=== PATIENT | male | born 1965 | race Caucasian/White ===

== ENCOUNTER 2018-03-26 16:35 | Inpatient (IN) ==
--- NOTE | 2018-03-26 17:13 | Emergency Department Note ---
Disposition Clinical Impression: Left-sided weakness, Left sided numbness, Hypertension, uncontrolled Disposition: Admitted As Inpatient Condition: Good Time of Disposition: 18:41 Neuro HPI - General Chief Complaint: ED Neuro Symptoms/Deficit Stated Complaint: L side numbness Time Seen by Provider: 03/26/18 16:49 Source: patient Mode of arrival: ambulatory Limitations: no limitations Nursing Notes Reviewed: Yes Vital Signs Reviewed: Yes - History of Present Illness HPI Narrative: 53-year-old male history of hypertension diabetes presents an emergency department with left side weakness and numbness. Symptoms have been ongoing for almost 48 hours. States he was sitting on the couch when he felt his left side numb and a gradually developed into some weakness. Patient was able to ambulate here in the emergency department without difficulty. States this feels heavy. No prior history of stroke. His glucose was 161. His blood pressure was elevated but he has been having issues controlling it recently. His primary care physician recently increases lisinopril last week. He denies any chest pain or shortness of breath. No prior history of stroke or CVA. No history of blood clots. Denies any complaints such as headache, chest pain, shortness of breath or abdominal pain. No recent illness or fevers. No recent travel, tick bites or rashes. No prior injury or trauma. - Related Data Home Medications: Home Medications Medication Instructions Recorded Confirmed Albuterol Sulfate [Ventolin Hfa] 2 puff IH Q4H PRN 03/26/18 03/26/18 Lisinopril-HCTZ 20-12.5 [Prinzide 1 tab PO DAILY 03/26/18 03/26/18 20-12.5] Omeprazole [PriLOSEC] 40 mg PO DAILY 03/26/18 03/26/18 cloNIDine HCl [CloNIDine HCl] 0.1 mg PO TID 03/26/18 03/26/18 Allergies/Adverse Reactions: Allergies Allergy/AdvReac Type Severity Reaction Status Date / Time No Known Allergies Allergy Verified 03/26/18 18:47 All systems ED: reviewed and negative except as stated. Review of Systems: As Per HPI Constitutional: Reports: weakness. Denies: fever, chills Eyes: Denies: vision change Cardiovascular: Denies: chest pain, palpitations Respiratory: Denies: dyspnea Gastrointestinal: Denies: abdominal pain Musculoskeletal: Denies: back pain, neck pain Neurological: Reports: weakness, numbness. Denies: headache, vertigo Past Medical History - Past Medical History Attestation: Yes The following information was validated with the patient. Source: patient Medical history: Reports: GERD, hypertension, migraine Psychiatric history: Reports: no psych history - Social History Smoking Status: Current every day smoker Smokeless Tobacco Status: No Alcohol use: Reports: none Drug use: Reports: marijuana Physical Exam - General General appearance: alert, in no apparent distress - Head Head exam: atraumatic, normocephalic, normal inspection - Eye Eye exam: Present: normal appearance, PERRL, EOMI. Absent: nystagmus - ENT ENT exam: normal exam, normal oropharynx, mucous membranes moist - Neck Neck exam: Present: normal inspection, full ROM, trachea midline - Chest Chest inspection: Present: normal inspection, symmetric chest wall rise - Respiratory Respiratory exam: Present: normal lung sounds bilaterally. Absent: respiratory distress, wheezes - Cardiovascular Cardiovascular exam: Present: regular rate, normal rhythm, normal heart sounds - Expanded Cardiovascular Exam Peripheral pulses: 2+: radial (R), radial (L) - Abdominal Exam Abdominal exam: Present: soft, Non-Tender, normal bowel sounds. Absent: tenderness, distention, guarding, rebound, rigidity - Extremities Exam Extremities exam: Present: normal inspection, full ROM, normal capillary refill. Absent: tenderness, pedal edema - Back Exam Back exam: Present: normal inspection, full ROM. Absent: tenderness, vertebral tenderness - Neurological Exam Neurological exam: Present: alert, oriented X3, CN II-XII intact - Expanded Neurological Exam Patient oriented to: Present: person, place, time Cranial nerves: EOM function (II, III, IV, ): Normal, facial sensation (V): Normal, facial palsy (VII): Normal, gag reflex (IX): Normal, spinal accessory function (XI): Normal, tongue deviation (XII): Normal Cerebellar function: finger to nose: Normal, heel to wright: Normal Cerebellar function: normal gait Motor strength - LUE: 5/5 Motor strength - RUE: 5/5 Motor strength - LLE: 5/5 Motor strength - RLE: 5/5 Upper motor neuron exam: cristobal neglect: Absent bilaterally, pronator drift: Present on left Sensory exam upper extremity: light touch: Normal Sensory exam lower extremity: light touch: Normal Coma Scale Eye Opening: Spontaneous Coma Scale Motor Response: Obeys Commands Coma Scale Verbal Response: Oriented Coma Scale Total: 15 - Psychiatric Psychiatric exam: Present: normal affect, normal mood - Skin Skin exam: Present: warm, dry, intact, normal color. Absent: rash, cyanosis, diaphoresis Course Course Narrative: Patient was immediately evaluated here in the emergency department. His initial NIH score is 2 due to his sensory deficit on the left side and a slight left arm pronator drift. Stroke alert was not initiated given the time of onset greater than 4 hours. His exam is otherwise unremarkable. Given some of his risk factors will evaluate for possible CVA. Denies any G.I. bleed symptoms. A manual blood pressure 142/96. - Reevaluation(s) Reevaluation #1: His glucose has improved. His labs or otherwise unremarkable. Troponin lesson 0.03. His CT of the head did not reveal any acute infarct he does have a old chronic lacunar infarct that he is aware of. At this time given his risk factors including tobacco abuse and elevated blood pressure he will be admitted and given aspirin for further evaluation for possible new or worsening stroke. He is in agreement with this plan. He is requesting the smoke I discussed tobacco cessation. He would like to try nicotine patch at this time. Impression is left sided numbness weakness and tobacco abuse and hypertension without evidence of end organ damage. Time: 18:40 - Consultations Consultation #1: Spoke with on-call hospitalist alexi Stone to admit for left numbness/weakness , HTN and CVA workup. No further orders at this time Time: 19:18 Vital Signs Temperature 98.1 F 03/26/18 16:38 Pulse Rate 89 03/26/18 16:38 Respiratory Rate 16 03/26/18 16:38 Blood Pressure 191/135 03/26/18 16:38 O2 Sat by Pulse Oximetry 97 03/26/18 16:38 Temperature 98.1 F 03/26/18 16:38 Pulse Rate 93 03/26/18 18:45 Respiratory Rate 18 03/26/18 17:00 Blood Pressure 139/123 03/26/18 18:45 O2 Sat by Pulse Oximetry 96 03/26/18 17:10 Oxygen Delivery Oxygen Delivery Room Air Neuro Symptoms/Deficit - MDM Narrative Medical decision making narrative: Patient was discussed with my attending physician who agrees with ED management and final disposition. They independently evaluated the patient. Please refer to their attestation to this encounter for additional information. This note was generated by [employer] voice recognition software and as a result grammatical or spelling errors may occur using this program. - Medical Records Medical records reviewed: Yes I reviewed the patient's medical records. - Lab Data Lab results reviewed: Yes I reviewed the patient's lab results. Result diagrams: 03/26/18 17:05 03/26/18 17:05 Lab Results 03/26/18 03/26/18 03/26/18 Range/Units 17:05 17:05 17:05 WBC 9.6 (4.3-11.1) K/mcL RBC 5.20 (4.19-5.50) M/mcL Hgb 15.8 (12.9-16.9) g/dL Hct 45.1 (37.5-50.1) % MCV 86.7 (83.0-100.0) fL MCH 30.4 (28.0-33.3) pg MCHC 35.0 (31.6-35.5) g/dL RDW 13.6 (11.5-14.5) % Plt Count 329 (140-400) K/mcL MPV 9.3 L (9.4-12.4) fL Immature Gran % 0.3 (0-4) % Seg Neutrophils % 65.4 % Lymphocytes % 26.0 % Monocytes % 5.7 % Eosinophils % 2.2 % Basophils % 0.4 % Neutrophils # 6.3 (1.6-8.9) K/mcL Lymphocytes # 2.5 (0.6-4.6) K/mcL Monocytes # 0.6 (0.0-1.3) K/mcL Eosinophils # 0.2 (0.0-0.6) K/mcL Basophils # 0.0 (0.0-0.2) K/mcL PT 12.7 H (9.4-12.1) Seconds INR 1.1 APTT 37.0 H (26.0-36.0) Seconds Sodium 136 (136-145) mEq/L Potassium 3.6 (3.5-5.1) mEq/L Chloride 101 (98-107) mEq/L Carbon Dioxide 27 (23-29) mEq/L BUN 6 (6-20) mg/dL Creatinine 0.99 (0.70-1.30) mg/dL Est GFR ( Amer) > 60 (> 60) Est GFR (Non-Af Amer) > 60 (> 60) BUN/Creatinine Ratio 6 (6-26) Glucose 139 H (70-105) mg/dL Calculated Osmolality 282 (280-300) Calcium 9.6 (8.6-10.3) mg/dL Troponin I < 0.03 (< 0.04) ng/mL - Radiology Data Radiology results reviewed: Yes I reviewed the patient's radiology results. Head CT 03/26/18 17:10 IMPRESSION: No acute intracranial abnormality. D/ / Richard Lopez MD / Richard Lopez MD Interpreting Provider: Richard Lopez MD - EKG Data EKG attestation: Yes I reviewed and interpreted this EKG. EKG results narrative: EKG performed 1643 normal sinus rhythm 88 beats per minute, normal axis, no LVH , intervals within normal limits, no ST elevation or depression. No old EKG available for comparison at this time. No acute ischemic changes. NIH Stroke Scale - Level of Consciousness LOC: Alert - LOC Questions LOC Questions: Answers both correctly - LOC Commands LOC Commands: Performs both correctly - Best Gaze Best Gaze: Normal - Visual Visual: No visual loss - Facial Palsy Facial Palsy: Normal - Motor Arms Motor Arm-Left: Drift, does NOT hit bed Motor Arm-Right: No drift for 10 seconds - Motor Legs Motor Leg-Left: No drift for 5 seconds Motor Leg-Right: No drift for 5 seconds - Limb Ataxia Limb Ataxia: Absent of affected limb too weak to perform exam - Sensory Sensory: Mild to moderate loss, "not as sharp" - Best Language Best Language: No aphasia - Dysarthria Dysarthria: Normal - Extinction and Inattention Extinction and Inattention: Normal - NIHSS Total Score NIHSS Total Score: 2 TPA Checklist - Eligibilty for IV tPA 1. LKW equal to or less than 4.5 hours be before treatment: No Attestation Statement - Attestation Attestation: I examined this patient and my medical decision-making was reviewed with the Resident Physician, Dr. Patrick. I agree with the documented findings, disposition and treatment plan as described except to the extent set forth below. Patient is a 53-year-old white male smoker with a history of uncontrolled blood pressure and diabetes who presents the emergency department today with a 48 hour history of left-sided weakness and numbness. Patient denies any associated headaches, no dizziness or vertigo, no history of falls or trauma. Patient with clear speech and GCS equals 15 awake alert and oriented 4. Patient states that the symptoms have been constant but not progressing, and he recently had his blood pressure medicine increased by his family doctor. I agree with patient's physical exam findings as documented. Patient's blood pressure is elevated at time of initial assessment. EKG was normal sinus rhythm with no acute ischemia or evidence of LVH. Patient had a thorough workup including laboratory evaluation chest x-ray and head CT. Patient with stable neurologic findings throughout his ED course with no worsening symptoms over time. Noncontrast head CT did show evidence of an old lacunar changes but no acute findings today. Patient's lab evaluation is unremarkable overall. Rechecking blood pressure with manual cuff with patient in appropriate positioning showed blood pressures in the 140s over 90s. No medications were administered for his blood pressure. Patient was administered aspirin and will be admitted for further evaluation of elevated blood pressure and left-sided weakness and numbness. Case was discussed with hospitalist who accepted the patient for further evaluation and management.
[2018-03-26 17:31] LABS: Basophils % 0.4 %; Eosinophils # 0.2 K/mcL (0.0-0.6); Eosinophils % 2.2 %; Hematocrit 45.1 % (37.5-50.1); Hemoglobin 15.8 g/dL (12.9-16.9); Immature Granulocytes % 0.3 % (0-4); Lymphocytes # 2.5 K/mcL (0.6-4.6); Mean Corpuscular Hemoglobin 30.4 pg (28.0-33.3); Mean Corpuscular Volume 86.7 fL (83.0-100.0); Mean Platelet Volume 9.3 fL (9.4-12.4); Monocytes # 0.6 K/mcL (0.0-1.3); Monocytes % 5.7 %; Neutrophils # 6.3 K/mcL (1.6-8.9); Platelet Count 329 K/mcL (140-400); Red Cell Distribution Width 13.6 % (11.5-14.5); Segmented Neutrophils % 65.4 %
[2018-03-26 17:36] LABS: INR 1.1; Prothrombin Time 12.7 Seconds (9.4-12.1)
[2018-03-26 17:53] LABS: Troponin I < 0.03 ng/mL (< 0.04)
[2018-03-26 17:54] LABS: BUN/Creatinine Ratio 6 (6-26); Blood Urea Nitrogen 6 mg/dL (6-20); Calcium 9.6 mg/dL (8.6-10.3); Carbon Dioxide 27 mEq/L (23-29); Chloride 101 mEq/L (98-107); Glucose 139 mg/dL (70-105); Osmolality,Calculated 282 (280-300); Potassium 3.6 mEq/L (3.5-5.1); Sodium 136 mEq/L (136-145); eGFR For Non-African Americans > 60 (> 60)
[2018-03-26] MEDS ORDERED: Aspirin 81 MG TAB.CHEW PO STA (18:28)
[2018-03-26] MEDS ORDERED: Nicotine 21 MG PATCH.TD24 TD STA (18:33)
--- NOTE | 2018-03-26 20:33 | Internal Med History&Physical ---
<Connor Edwards - Last Filed: 03/26/18 22:39> Date of Encounter: 03/26/18 Time of Encounter: 20:28 Internal Medicine - H&P: HPI Chief complaint: weakness, numbness Admitted From: Emergency Dept Plans for Post Hospital Care: Home History of present illness: Mr. Martin is a 53 year old male with past medical history of hypertension, GERD presents to emergency room with complaint of left-sided weakness and numbness starting this morning. Patient states that he was sitting on the couch when he experienced sudden onset of symptoms. Numbness is located on the entire left side of his body and has been constant ever since onset. He has never experienced anything like this in the past. He states occasionally he does feel some tingling in bilateral upper extremities but never numbness like this. He denies symptoms of fevers, chills, slurred speech, focal weakness, chest pain. He does admit to some shortness of breath at baseline but states this is likely secondary to tobacco abuse. He states that he is not always compliant and his antihypertensive medicines but did take it this morning. He denies urinary symptoms but does admit to chronic constipation. He admits to an altered gait and his was present at bedside also states that he has been walking slower than usual. Denies any confusion or changes in his mental status. Complains of a headache and states that for one episode this morning there was some intermittent dizziness. No associated nausea or vomiting. No sick contacts, no recent travel. The emergency department, vital signs remarkable for an elevated blood pressure of 191/135 which has mildly improved to 139/123. Laboratory results are significant for mildly elevated APTT at 37 and PT of 12.7. Otherwise within normal limits. CT head was obtained for concerns of ischemic event and was negative for acute infarct. He did have a previous brain MRI in March 2017 which showed encephalomalacia in the right anterior temporal region with surrounding gliosis. Remote insult is also noted adjacent to the frontal portion of the right lateral ventricle involving the caudate lobe. There is extension to the anterior limb of the internal capsule into the right anterior lentiform nucleus region. Associated gliosis and hemosiderin as noted. Past medical history as above. Documentation states diabetes however patient denies Past surgical history includes hernia repair and face laceration Social history significant for 2 pack per day smoker since teenage years, denies alcohol use. Daily marijuana use and remote history of LSD. Past Med Surg Social Fam HX - Past Medical History Medical history: GERD, hypertension, migraine Psychiatric history: no psych history - Social History Smoking Status: Current every day smoker Smokeless Tobacco Status: No Alcohol use: none Drug use: marijuana - Family History Mother Living Status: Cause of : aneurysm Father Living Status: Cause of : COPD Hx Family Respiratory Disorders: Yes (COPD) Internal Medicine - H&P: Meds Albuterol Sulfate [Ventolin Hfa] 2 puff IH Q4H PRN 03/26/18 [History] Lisinopril-HCTZ 20-12.5 [Prinzide 20-12.5] 1 tab PO DAILY 03/26/18 [History] Omeprazole [PriLOSEC] 40 mg PO DAILY 03/26/18 [History] cloNIDine HCl [CloNIDine HCl] 0.1 mg PO TID 03/26/18 [History] 3 Allergy/AdvReac Type Severity Reaction Status Date / Time No Known Allergies Allergy Verified 03/26/18 18:47 All Systems PM: A 10-system review of systems was performed and is negative for pertinent findings except as documented above in the HPI. - Constitutional Constitutional: weakness, weight loss, no chills, no fatigue, no fever(s), no lethargy - EENT Eyes: floaters, no blurry vision - Cardiovascular Cardiovascular ROS IM: dyspnea on exertion, no chest pain, no diaphoresis, no dyspnea, no edema, no lightheadedness, no syncope - Respiratory Respiratory: dyspnea on exertion, no cough, no dyspnea, no wheezing - Gastrointestinal Gastrointestinal: constipation, no abdominal pain, no coffee ground emesis, no diarrhea, no dysphagia, no hematemesis, no hematochezia, no loose stools, no melena, no vomiting - Genitourinary Genitourinary ROS male: no dysuria - Musculoskeletal Musculoskeletal ROS IM: back pain, muscle weakness, numbness, no tingling - Integumentary Integumentary IM: no rash - Neurological Neurological ROS: abnormal gait, dizziness, focal weakness, numbness, weakness, no abnormal hearing, no abnormal speech, no behavioral changes, no confusion, no disequilibrium, no tingling, no other visual disturbances - Constitutional Vitals: Temp Pulse Resp BP Pulse Ox 98.1 F 93 18 146/92 96 03/26/18 16:38 03/26/18 18:45 03/26/18 17:00 03/26/18 19:57 03/26/18 17:10 Exam: Gen.: Vitals noted. No acute distress. AAOx3. Resting comfortably in bed HEENT: PERRL/EOMI, oropharynx clear, Normocephalic, atraumatic, moist mucous membranes Cardiac: RRR, no murmur, +S1/S2 Pulmonary: Mild wheezes in right lung base otherwise CTA bilaterally, no wheezes , rales or rhonchi, equal chest expansion Abdomen: soft, nontender, BS noted, no guarding MSK: ROM intact, no joint swelling noted Extremities: no BLE edema, nontender calf, no cyanosis or clubbing Neuro: A&Ox3, moves all extremities, no focal deficits. Cranial nerves II through XII grossly intact. Patient reports many sensation on left side with inability to distinguish sharp first dull touch. He also complains of weakness however on exam he is able to achieve 5/5 muscle strength however left side does notably take longer to achieve full strength. Psych: Appropriate mood and behavior Internal Med - H&P Results - Labs CBC & Chem 7: 03/26/18 17:05 03/26/18 17:05 - Assessment and plan (1) Left sided numbness Current Visit: Yes Status: Acute Assessment and plan: - Sudden onset numbness and weakness in left side of body x1 day - CT head in ED was negative for ischemic event - Risk factors include tobacco use, DM?, HTN - Numbness, inability to discriminate sensation, mild weakness on exam - BP elevated on presentation, will allow for permission HTN Plan - Start ASA, atorvastatin - MRI head pending - Echocardiogram, carotid US pending - Pt/OT - Consult to neurology, appreciate recommendation Update: MRI shows acute ischemic small 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 Left basal ganglia hemorrhage and left cerebral micro hemorrhages new from 2017, non acute. 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 lobe unchanged from previous (2) Left-sided weakness Current Visit: Yes Status: Acute Assessment and plan: as above (3) Hypertension, uncontrolled Current Visit: Yes Status: Chronic Assessment and plan: - BP of 191/135 on presentation, mildly improved to 139/123 during ED stay - Takes clonidine at home After finding acute CVA on MRI as above, will hold BP meds and allow for permissive HTN Goal BP 160-170/90-100 (4) Diabetes type 2, controlled Current Visit: Yes Status: Chronic Assessment and plan: - Patient denies type II DM2, however it is documented in chart - No recent A1c in chart - Will obtain a1c in AM and start hypoglyemic order but will not start insulin therapy - BS in ED of 137 Qualifiers: Diabetes mellitus custodial insulin use: without custodial use Diabetes mellitus complication status: without complication Qualified Code(s): E11.9 - Type 2 diabetes mellitus without complications (5) DVT prophylaxis Current Visit: Yes Status: Acute Assessment and plan: - Heparin held due to MRI showing acute stroke aspirin (6) Tobacco abuse Current Visit: Yes Status: Acute Assessment and plan: - discussed smoking cessation, patient acknowledges risk of continuing to smoke. He is not interested in cessation at this time. Will give nicotine patch Wheezing on exam, will give albuterol PRN - Time Spent With Patient Total time spent is greater than 50% in coordination of care (as documented) at patient's floor/unit and/or counseling patient: <Ivan Calles - Last Filed: 03/27/18 14:28> Date of Encounter: 03/27/18 Internal Medicine - H&P: HPI History of present illness: Mr. Martin is a 53 year old male All Systems PM: A 10-system review of systems was performed and is negative for pertinent findings except as documented above in the HPI. - Constitutional Vitals: Temp Pulse Resp BP Pulse Ox 97.5 F L 86 16 167/27 97 03/27/18 10:59 03/27/18 10:59 03/27/18 10:59 03/27/18 10:59 03/27/18 10:59 Internal Med - H&P Results - Labs CBC & Chem 7: 03/27/18 04:17 03/27/18 04:17 Labs: Short CBC 03/27/18 Range/Units 04:17 WBC 8.8 (4.3-11.1) K/mcL Hgb 15.7 (12.9-16.9) g/dL Hct 45.4 (37.5-50.1) % Plt Count 330 (140-400) K/mcL Neutrophils # 4.2 (1.6-8.9) K/mcL BMP 08/03/18 04:17 Sodium 137 Potassium 3.8 Chloride 102 Carbon Dioxide 27 BUN 7 Creatinine 0.85 Glucose 125 H Calcium 9.7 - Attending Attestation Seen and assessed. Agree with plan per resident. Continue management for acute medullary stroke - Assessment and plan (1) Left-sided weakness Current Visit: Yes Status: Acute (2) Left sided numbness Current Visit: Yes Status: Acute (3) Hypertension, uncontrolled Current Visit: Yes Status: Chronic (4) DVT prophylaxis Current Visit: Yes Status: Acute (5) Diabetes type 2, controlled Current Visit: Yes Status: Chronic Qualifiers: Diabetes mellitus custodial insulin use: without intermediate project manager use Diabetes mellitus complication status: without complication Qualified Code(s): E11.9 - Type 2 diabetes mellitus without complications (6) Tobacco abuse Current Visit: Yes Status: Acute - Time Spent With Patient Total time spent is greater than 50% in coordination of care (as documented) at patient's floor/unit and/or counseling patient:
[2018-03-26] MEDS ORDERED: traMADol 50 MG TABLET PO PRN (20:40)
[2018-03-26] MEDS ORDERED: Naloxone 0.4 MG/ML INJ IVP PRN (20:40)
[2018-03-26] MEDS ORDERED: Acetaminophen 325 MG TABLET PO PRN (20:40)
[2018-03-26] MEDS: cloNIDine HCl 0.1 MG TABLET PO SCH (22:17)
--- NOTE | 2018-03-26 22:22 | Event Note ---
Date of Encounter: 03/26/18 Time of Encounter: 22:14 Alerted by patient's nurse CHRISTOPHER Dutton that MRI results came back stating small acute medullary infarct and left basal ganglia hemorrhage and left cerebral microhemorrhages new from 2017, nonacute. Small focus of encephalomalacia/gliosis involving anterior right temporal lobe, possibly post- traumatic, unchanged. Pts. HTN medications held to allow for permissive HTN. Neurology consulted. Pt. to be monitored closely.
[2018-03-27 04:46] LABS: Basophils # 0.1 K/mcL (0.0-0.2); Basophils % 0.6 %; Eosinophils # 0.4 K/mcL (0.0-0.6); Eosinophils % 4.1 %; Hematocrit 45.4 % (37.5-50.1); Hemoglobin 15.7 g/dL (12.9-16.9); Immature Granulocytes % 0.3 % (0-4); Lymphocytes # 3.5 K/mcL (0.6-4.6); Lymphocytes % 39.8 %; Mean Corpuscular HGB Conc 34.6 g/dL (31.6-35.5); Mean Corpuscular Volume 86.8 fL (83.0-100.0); Mean Platelet Volume 9.4 fL (9.4-12.4); Monocytes # 0.7 K/mcL (0.0-1.3); Monocytes % 7.5 %; Neutrophils # 4.2 K/mcL (1.6-8.9); Platelet Count 330 K/mcL (140-400); Red Blood Count 5.23 M/mcL (4.19-5.50); Red Cell Distribution Width 13.7 % (11.5-14.5); Segmented Neutrophils % 47.7 %
[2018-03-27 04:56] LABS: BUN/Creatinine Ratio 8 (6-26); Blood Urea Nitrogen 7 mg/dL (6-20); Calcium 9.7 mg/dL (8.6-10.3); Carbon Dioxide 27 mEq/L (23-29); Chloride 102 mEq/L (98-107); Chol/HDL Ratio 7.8 (0-4.9); Cholesterol 218 mg/dL (< 200); Glucose 125 mg/dL (70-105); HDL Cholesterol 28 mg/dL (40-59); LDL Cholesterol,Calculated 153 mg/dL (0-99); Osmolality,Calculated 283 (280-300); Potassium 3.8 mEq/L (3.5-5.1); Sodium 137 mEq/L (136-145); Triglycerides 184 mg/dL (< 150); eGFR For Non-African Americans > 60 (> 60)
[2018-03-27] MEDS ORDERED: *HR* Heparin 5,000 UNIT/ML VIAL SQ SCH (06:00)
[2018-03-27] MEDS: Nicotine 21 MG PATCH.TD24 TD SCH (08:41)
[2018-03-27] MEDS: Lisinopril-HCTZ 20-12.5mg TABLET PO SCH (08:42)
[2018-03-27] MEDS: Aspirin 81 MG TAB.CHEW PO SCH (08:42)
[2018-03-27] MEDS: cloNIDine HCl 0.1 MG TABLET PO SCH ×3 (08:42→21:39)
--- NOTE | 2018-03-27 09:05 | Neurology - Consult Note ---
<Checo Rosenthal - Last Filed: 03/27/18 14:12> Date of Encounter: 03/27/18 Time of Encounter: 08:35 Assessment and Plan (1) Acute brainstem infarction Current Visit: Yes Status: Acute MRI brain showed a small acute anterior medullary infarct. Continue 81mg ASA and statin Will add 75mg clopidogrel as hemorrhage on MRI was said to be non acute Agree with holding BP meds to allow for permissive HTN till tomorrow and then restart as needed Carotid doppler and ECHO ordered PT/OT ordered Code(s): I63.8 - Other cerebral infarction SNOMED Code(s): 80422086 History of Present Illness Chief complaint: L sided numbness HPI: Mr. Martin is a 53 year old male with a PMH significant for HTN, 2ppd tobacco use, and migraines that neurology was consulted for L sided numbness. He states he was watching TV yesterday ~1100 while sitting on the couch and all of a sudden got entire L sided numbness "from top of head to toes." This was followed by L arm weakness, slurred speech, headache, and was off balance towards his L side while walking. His symptoms were not resolving and not progressing when he decided to go to the ED last night. Today, he says the numbness and weakness is minimally better, slurred speech has resolved but has been dizzy with nausea but has not vomited. He denies any diplopia, blurry vision, loss of peripheral vision, dysphagia, chest pain, palpitations, R sided numbness/weakness, or urinary incontinence. Past Med Surg Social Fam HX - Past Medical History Medical history: GERD, hypertension, migraine Additional medical history: chronic back pain Psychiatric history: no psych history - Social History Smoking Status: Current every day smoker Packs per day: 2 Smokeless Tobacco Status: No Alcohol use: none Drug use: marijuana - Family History Mother Living Status: Cause of : aneurysm Father Living Status: Cause of : COPD Hx Family Respiratory Disorders: Yes (COPD) Medications and Allergies Albuterol Sulfate [Ventolin Hfa] 2 puff IH Q4H PRN 03/26/18 [History] Lisinopril-HCTZ 20-12.5 [Prinzide 20-12.5] 1 tab PO DAILY 03/26/18 [History] Omeprazole [PriLOSEC] 40 mg PO DAILY 03/26/18 [History] cloNIDine HCl [CloNIDine HCl] 0.1 mg PO TID 03/26/18 [History] 3 Allergy/AdvReac Type Severity Reaction Status Date / Time No Known Allergies Allergy Verified 03/26/18 18:47 All Systems: The remainder of the systems were reviewed and are negative Physical Examination - Vital Signs Vital Signs: Initial Vital Signs Temp Pulse Resp BP Pulse Ox 98.1 F 89 16 191/135 97 03/26/18 16:38 03/26/18 16:38 03/26/18 16:38 03/26/18 16:38 03/26/18 16:38 - Constitutional General appearance: comfortable - Neurologic Sensorimotor examination: pronator drift (L sided drift) Motor examination - right side: 5/5: deltoids, biceps, triceps, wrist flexion, wrist extension, multigrapher, hip flexors, tibialis Anterior, quadriceps, toe extension (EHL), plantarflexion Motor examination - left side: 4/5: deltoids, biceps, triceps, wrist flexion, wrist extension, hip flexors, multigrapher, quadriceps, tibialis Anterior, toe extension (EHL), plantarflexion Detailed sensory examination: light touch (intact bilaterally ), temperature ( Decreased slightly on L upper/lower limb when compared to R side ), vibration ( intact bilaterally ) Reflexes: Biceps: 2+, Triceps: 2+, Brachioradialis: 2+, Patella: 2+, Achilles: 2 + Mental Status Examination: awake, alert, oriented to person, oriented to place, oriented to time, follows commands appropriately, answers questions appropriately, no aphasia Cranial nerve examination: PERRL, EOMI, visual hernandez intact, sensory to face intact, no facial asymmetry is present, no dysarthria, soft palate elevates bilaterally upon phonation, flexes SCM and trapezius muscles symmetrically with full power Cranial Nerve Exam: nystagmus: Left (L sided nystagmus ), tongue protrudes: Right (slightly to the right of midline with R/L movement of tongue intact) Ataxia: left upper extremity Results - Laboratory Findings CBC and BMP: 03/27/18 04:17 03/27/18 04:17 Abnormal lab findings: Abnormal lab results PT 12.7 Seconds (9.4-12.1) H 03/26/18 17:05 APTT 37.0 Seconds (26.0-36.0) H 03/26/18 17:05 Glucose 125 mg/dL (70-105) H 03/27/18 04:17 POC Glucose 161 mg/dL (70-99) H 03/26/18 16:39 Triglycerides 184 mg/dL (< 150) H 03/27/18 04:17 Cholesterol 218 mg/dL (< 200) H 03/27/18 04:17 LDL Cholesterol, Calc 153 mg/dL (0-99) H 03/27/18 04:17 VLDL Cholesterol, Calc 37 mg/dL (< 31) H 03/27/18 04:17 HDL Cholesterol 28 mg/dL (40-59) L 03/27/18 04:17 Cholesterol/HDL Ratio 7.8 (0-4.9) H 03/27/18 04:17 Consult Discharge Plan - Plan Referrals: Danny Sherman Jr, DISTRIBUTOR OPERATOR [Advanced Practice Nurse] - 03/30/18 2:30 pm NONE,PCP [Primary Care Provider] - <Gonzalez Gibbs - Last Filed: 03/27/18 16:34> Date of Encounter: 03/27/18 Time of Encounter: 16:29 Assessment and Plan (1) Acute brainstem infarction Current Visit: Yes Status: Acute As above. This patient has unfortunately experienced an acute brainstem infarct. Specifically the infarct is located in the anterior medulla. Unfortunately after multiple tends to educate this patient he has little interest in modifying his current lifestyle. He understands that strokes can be lethal this was stated to him several times. I am also concerned about his ability to care for himself as he goes home. He is adamant that he will be able to care for himself and his live-in girlfriend who quite possibly may have disabilities of her home. However from a medical perspective I would recommend smoking cessation, would recommend that he continue aspirin 81 mg daily along with staff. I would recommend normalizing his blood pressure over the next day or so. Carotid Doppler study at this time is pending. However, more than likely this is a small vessel event which occurred in the posterior circulation. I will reevaluate him at your request. I would also recommend a trial of outpatient PT and OT. History of Present Illness HPI: The chart was reviewed, the patient was seen and examined independently.Mr. Martin is a 53 year old male seen for neurologic evaluation secondary to sudden onset left-sided numbness paresthesia and weakness. Case was discussed with Dr. Rosenthal. I agree with his assessment as stated above. Upon admission patient's blood pressure was greater than 200 systolic. He is also a 2 pack per day smoker. All Systems: The remainder of the systems were reviewed and are negative Review of Systems: The balance of the systems review is negative. Physical Examination - Vital Signs Vital Signs: Initial Vital Signs Temp Pulse Resp BP Pulse Ox 98.1 F 89 16 191/135 97 03/26/18 16:38 03/26/18 16:38 03/26/18 16:38 03/26/18 16:38 03/26/18 16:38 Results - Laboratory Findings CBC and BMP: 03/27/18 04:17 03/27/18 04:17 Abnormal lab findings: Abnormal lab results PT 12.7 Seconds (9.4-12.1) H 03/26/18 17:05 APTT 37.0 Seconds (26.0-36.0) H 03/26/18 17:05 Glucose 125 mg/dL (70-105) H 03/27/18 04:17 POC Glucose 161 mg/dL (70-99) H 03/26/18 16:39 Triglycerides 184 mg/dL (< 150) H 03/27/18 04:17 Cholesterol 218 mg/dL (< 200) H 03/27/18 04:17 LDL Cholesterol, Calc 153 mg/dL (0-99) H 03/27/18 04:17 VLDL Cholesterol, Calc 37 mg/dL (< 31) H 03/27/18 04:17 HDL Cholesterol 28 mg/dL (40-59) L 03/27/18 04:17 Cholesterol/HDL Ratio 7.8 (0-4.9) H 03/27/18 04:17
[2018-03-27] MEDS ORDERED: Ondansetron 4 MG/2 ML VIAL IVP PRN (11:02)
--- NOTE | 2018-03-27 15:43 | Internal Med Progress Note ---
Hospitalist Progress Note - Encounter Date of Encounter: 03/27/18 Time of Encounter: 11:35 - Subjective Interval History: Patient was seen and assessed at bedside 11:35 AM. He states he wants to go home. He states that he cares for his girlfriend at home. I requested they please wait for testing and neurology evaluation, he was agreeable. He states that he does smoke at least 2 packs of cigarettes per day. He reports smoking marijuana every single day. Patient has obvious deficit left upper extremity with obvious weakness. He denies any pain in the extremity and states that his entire left side from head to toe is still tingling. He denies nausea or vomiting, vision changes, headache or blurred vision. He denies chest pain or shortness of breath, cough, fever, chest pain, abdominal pain, nausea, vomiting , or diarrhea. - Exam Vitals: Temp Pulse Resp BP Pulse Ox 97.5 F L 86 16 167/27 97 03/27/18 10:59 03/27/18 10:59 03/27/18 10:59 03/27/18 10:59 03/27/18 10:59 Exam: General: Pt sitting on bed, no distress. Skin: pwd, no rashes, lesions, redness Neurological: Pt is alert and awake, oriented x 3, Speech is clear, PERRLA, EOMI , no nystagmus. strength unequal, obvious weakness in right upper and right lower extremities. HEENT: mucous mumbranes moist, no conjuctival pallor Neck: supple, no tracheal deviation, no lymphadenopathy, tenderness, no thyromegaly Heart: S1S2 heard without gallops, clicks, murmurs, no bradycardia or tachycardia, pt has no peripheral edema, pedal and radial pulses palpable bilaterally. Lungs: clear throughout without wheezing, rales, or ronchi, respirations are unlabored Abdomen: soft and non tender with bowel sound present, no hepatomegaly. Psych: Normal affect with good eye contact - Assessment and Plan (1) Left-sided weakness Current Visit: Yes Status: Acute Assessment and Plan: Obvious left-sided upper extremity and lower extremity weakness status post acute CVA. Grasp weak to left hand and pt has some limited ROM to hand and fingers. PT/OT has recommended inpt swing bed/rehab. SS consulted for discharge planning Continue to monitor for safety and falls. (2) Left sided numbness Current Visit: Yes Status: Acute Assessment and Plan: Plan as above. (3) Hypertension, uncontrolled Current Visit: Yes Status: Chronic Assessment and Plan: Chronic and poorly controlled. Hold BP meds until tomorrow and restart, allow for permissive HTN. Per neuro note: Goal BP 160-170/90-100mmHg (4) DVT prophylaxis Current Visit: Yes Status: Acute Assessment and Plan: Heparin SQ BID, pt is ambulatory and up to chair. (5) Diabetes type 2, controlled Current Visit: Yes Status: Chronic Assessment and Plan: Hbg A1c ordered and pending. Pt denies diabetes Fasting serum glucose elevated this a.m. Hypoglycemic protocol in place, will not start insulin therapy until A1c returned. Accuchecks miguel (6) Tobacco abuse Current Visit: Yes Status: Chronic Assessment and Plan: Pt states that he smokes at least 2 PPD. States that he is not interested in smoking cessation and does not want nicoderm patch for home. Wheezing on exam, will start scheduled duonebs. (7) CVA (cerebral vascular accident) Current Visit: Yes Status: Acute Assessment and Plan: MRI showed small acute anterior medullary infarct. Patient has not acute left basal ganglia hemorrhage and left cerebral microhemorrhages that are new from prior exam in 2017. Small focus of encephalomalacia/gliosis involving anterior right temporal lobe, possibly posttraumatic, unchanged. She has been evaluated by neurology, I recommend holding blood pressure medications until tomorrow allowing for permissive hypertension. Patient will continue aspirin and statin. Plavix 75 mg by mouth daily was added. PT/OT have recommended swing bed/rehab Echo and carotids are ordered and pending Continue retail sales professional for safety and falls Encourage lifestyle modifications including BP and glucose control, smoking cessation, medication compliance. (8) Marijuana abuse Current Visit: Yes Status: Chronic Assessment and Plan: Pt states that he smokes marijuana daily and states that he is "never going to stop." DVT Prophylaxis: Heparin as above. - Time Spent with Patient Total time spent is greater than 50% in coordination of care (as documented) at patient's floor/unit and/or counseling patient: less than 15 minutes Plan of Care Discussed with: patient Internal Medicine: Result - Labs CBC & Chem 7: 03/27/18 04:17 03/27/18 04:17 Labs: Short CBC 03/27/18 Range/Units 04:17 WBC 8.8 (4.3-11.1) K/mcL Hgb 15.7 (12.9-16.9) g/dL Hct 45.4 (37.5-50.1) % Plt Count 330 (140-400) K/mcL Neutrophils # 4.2 (1.6-8.9) K/mcL BMP 03/27/18 04:17 Sodium 137 Potassium 3.8 Chloride 102 Carbon Dioxide 27 BUN 7 Creatinine 0.85 Glucose 125 H Calcium 9.7 - ABG Interpretation ABG results: PT/INR, D-dimer PT 12.7 Seconds (9.4-12.1) H 03/26/18 17:05 - VTE Documentation of Mechanical Device: Intermittent pneumatic compression device Consult Discharge Plan - Plan Referrals: Danny Sherman Jr, SIXTH GRADE TEACHER [Advanced Practice Nurse] - 03/30/18 2:30 pm NONE,PCP [Primary Care Provider] - (5) Diabetes type 2, controlled Qualifiers: Diabetes mellitus senior living insulin use: without senior living use Diabetes mellitus complication status: without complication Qualified Code(s): E11.9 - Type 2 diabetes mellitus without complications (7) CVA (cerebral vascular accident) Qualifiers: CVA mechanism: unspecified Qualified Code(s): I63.9 - Cerebral infarction, unspecified
[2018-03-27] MEDS: Ipratropium/Albuterol Neb 3 ML IH SCH ×3 (16:38→23:42)
[2018-03-28] MEDS: Ipratropium/Albuterol Neb 3 ML IH SCH ×3 (04:05→11:09)
[2018-03-28 07:46] VITALS: BP 150/110
[2018-03-28] MEDS: Nicotine 21 MG PATCH.TD24 TD SCH (08:04)
[2018-03-28] MEDS: Aspirin 81 MG TAB.CHEW PO SCH (08:05)
[2018-03-28] MEDS: Lisinopril-HCTZ 20-12.5mg TABLET PO SCH (08:05)
[2018-03-28] MEDS: cloNIDine HCl 0.1 MG TABLET PO SCH (08:05)
--- NOTE | 2018-03-28 08:19 | Electrocardiograph Report ---
[place] [employer] Test Date: 2018-03-26 Pat Name: Walt Martin Department: 104 Room: 3B54 Gender: M [facility] House Supervisor: [facility] : 1965 Requested By: Todd Woodard Order Number: [id number] Reading MD: Yovani Conti Measurements Intervals [place] Rate: 88 P: 70 AL: 124 QRS: 62 QRSD: 90 T: 60 QT: 354 QTc: 399 Interpretive Statements SINUS RHYTHM NONSPECIFIC T-WAVE ABNORMALITY Electronically Signed On 03-28-2018 8:17:55 EDT by Yovani Conti
--- NOTE | 2018-03-28 08:49 | Discharge Summary ---
- NOTES TO OUTPATIENT PROVIDER Notes to Outpatient Provider: Pt had medullary infarct, he is still having numbness and tingling to left side of body. PT/OT recommend inpt rehab, pt declined and states that he wanted to go home. Recommend PT/OT outpatient. Date of Encounter: 03/28/18 Time of Encounter: 09:30 - Discharge Diagnosis (1) Left-sided weakness Priority: Secondary Status: Acute Assessment and Plan: Obvious left-sided upper extremity and lower extremity weakness status post acute CVA. Grasp weak to left hand and pt has some limited ROM to hand and fingers. Pt reports numbness and tingling, somewhat improved today PT/OT has recommended inpt swing bed/rehab, pt refuses and wants to go home instead. Discussed risks of opting out of PT/OT, he states that he doesn't care. (2) Left sided numbness Priority: Secondary Status: Acute Assessment and Plan: Plan as above. (3) Hypertension, uncontrolled Priority: Secondary Status: Chronic Assessment and Plan: Chronic and poorly controlled. BP meds have been restarted. Per neuro note: Goal BP 160-170/90-100mmHg. At goal this a.m. Pt and I discussed the importance of lifestyle modifications and compliance with medications and he states, "Why? I'm not going to and I'm just going to have another stroke." (4) DVT prophylaxis Priority: Secondary Status: Acute Assessment and Plan: Heparin SQ BID, pt is ambulatory and up to chair. (5) Diabetes type 2, controlled Priority: Secondary Status: Chronic Assessment and Plan: Pt denies diabetes. No A1c available. Fasting serum glucose elevated this a.m. Hypoglycemic protocol in place, will not start insulin therapy until A1c returned. Accuchecks achs Follow closely with PCP for evaluation and medications if necessary. Qualifiers: Diabetes mellitus long-term insulin use: without dextrine mixer use Diabetes mellitus complication status: without complication Qualified Code(s): E11.9 - Type 2 diabetes mellitus without complications (6) Tobacco abuse Priority: Secondary Status: Chronic Assessment and Plan: Pt states that he smokes at least 2 PPD. States that he is not interested in smoking cessation and does not want nicoderm patch for home. Lungs diminished, pt with normal, non-productive smoker's cough that he has every day. (7) CVA (cerebral vascular accident) Priority: Primary Status: Acute Assessment and Plan: MRI showed small acute anterior medullary infarct. Patient has not acute left basal ganglia hemorrhage and left cerebral microhemorrhages that are new from prior exam in 2017. Small focus of encephalomalacia/gliosis involving anterior right temporal lobe, possibly posttraumatic, unchanged. He has been evaluated by neurology, BP medications started overnight, permissive HTN allowed. Patient will continue aspirin and statin. Plavix 75 mg by mouth daily was added. PT/OT have recommended swing bed/rehab, pt has refused and states that he needs to go home to care for his girlfriend. We discussed the risks of falls, increased debility and pt insists that he is going home. He is alert, oriented, mentation is clear, and he is able to make informed decisions on his own. Carotids show non-stenotic plaque bilaterally. Echo 55-60% with mild LVDD and no significant valvular dysfunction. Encourage lifestyle modifications including BP and glucose control, smoking cessation, medication compliance. Qualifiers: CVA mechanism: unspecified Qualified Code(s): I63.9 - Cerebral infarction, unspecified (8) Marijuana abuse Priority: Secondary Status: Chronic Assessment and Plan: Pt states that he smokes marijuana daily and states that he is "never going to stop." L Hospital course: Mr. Martin is a 53 year old male with PMH of tobacco abuse, marijuana abuse, and uncontrolled hypertension. Please see assessment and plan for hospital course. Discharge discussed with: patient - Time Spent with Patient Total time spent providing and/or coordinating discharge services: Less than 30 minutes - Discharge Medications Home Medications: Albuterol Sulfate [Ventolin Hfa] 2 puff IH Q4H PRN 03/26/18 [History] Lisinopril-HCTZ 20-12.5 [Prinzide 20-12.5] 1 tab PO DAILY 03/26/18 [History] Omeprazole [PriLOSEC] 40 mg PO DAILY 03/26/18 [History] cloNIDine HCl [CloNIDine HCl] 0.1 mg PO TID 03/26/18 [History] Allergies/Adverse Reactions: 3 Allergy/AdvReac Type Severity Reaction Status Date / Time No Known Allergies Allergy Verified 03/26/18 18:47 Date of admission: 03/26/18 23:48 Primary care physician: PCP NONE Consults: 03/27/18 16:03 Consult to Shop Steward [CONS] Stat Reason for Consult: Discharge placement Discharging clinician: Geetha Davis Anticipated date of discharge: 03/28/18 - Constitutional Vitals: Temp Pulse Resp BP Pulse Ox 97.5 F L 78 18 150/110 100 03/28/18 07:40 03/28/18 07:40 03/28/18 07:40 03/28/18 07:40 03/28/18 07:40 General appearance: Present: cooperative, A&O X 3, pleasant, no acute distress, answers questions appropriately - Head Head exam: Present: atraumatic, normal inspection, normocephalic - Eye Eye exam: Present: EOMI, normal appearance, conjuntiva pink, sclera anicteric. Absent: nystagmus Pupils: Absent: unequal - Neck Neck exam general surgery: Present: normal inspection, supple, trachea midline. Absent: lymphadenopathy, tenderness - Respiratory Respiratory exam: Present: decreased breath sounds, CTAB. Absent: accessory muscle use, chest wall tenderness, rales, respiratory distress, rhonchi, wheezes - Cardiovascular Cardiovascular exam: Present: RRR, +S1, +S2. Absent: diastolic murmur, gallop, rubs, systolic murmur - GI/Abdominal GI/Abdominal exam: Present: normal bowel sounds, soft, no peritoneal signs. Absent: distended, hepatomegaly, tenderness - Extremities Exam Extremities exam: Present: normal capillary refill, normal inspection, warm, radial pulses palpable and symmetrical. Absent: calf tenderness, cyanotic, pedal edema, tenderness - Neurological Exam Neurological exam: Present: alert, oriented X3, no focal deficits. Absent: facial droop, speech deficit - Skin Skin exam: Present: dry, intact, normal color, warm. Absent: rash - Patient Status Disposition: Home, Self-Care Condition: Good Functional capacity at discharge: independent ambulation Overall status at discharge: patient is not back to baseline - Discharge Instructions Follow Up With: Danny Sherman Jr, JOHN [Advanced Practice Nurse] - 03/30/18 2:30 pm NONE,PCP [Primary Care Provider] - Additional Instructions: Take your medications as directed. Follow up with your PCP as scheduled Stop smoking cigarettes and stop smoking marijuana Manage your blood pressure and take your blood pressure medication as directed Return to the ER as needed for any other problems or concerns or if your symptoms return or worsen. You will need to follow up with your doctor to check your A1c and your blood sugars to check for diabetes. - Diet and Activity Activity: increase activity as tolerated Diet: low fat, low cholesterol, low salt diet - VTE Documentation of Mechanical Device: Intermittent pneumatic compression device
== END 2018-03-28 12:21 | disposition home or self-care (01) | DRG 45 ==
LOC: EMEROO 16:35 → 3BNU 16:35
PROVIDERS: ADMIT Internal Medicine; ATTEND Internal Medicine

== ENCOUNTER 2018-04-30 12:59 | Observation (INO) ==
--- NOTE | 2018-04-30 13:14 | Emergency Department Note ---
Disposition Clinical Impression: Syncopal episodes Disposition: Admitted As Inpatient Condition: Good General Adult HPI - General Chief complaint: ED Syncope Stated complaint: syncope Time Seen by Provider: 04/30/18 13:04 Source: EMS Limitations: no limitations Nursing Notes Reviewed: Yes Vital Signs Reviewed: Yes - History of Present Illness Pain Scale: 0 - Related Data Home Medications Medication Instructions Recorded Confirmed Albuterol Sulfate [Ventolin Hfa] 2 puff IH Q4H PRN 03/26/18 04/30/18 Lisinopril-HCTZ 20-12.5 [Prinzide 1 tab PO DAILY 03/26/18 04/30/18 20-12.5] Omeprazole [PriLOSEC] 40 mg PO DAILY 03/26/18 04/30/18 cloNIDine HCl [CloNIDine HCl] 0.1 mg PO TID 03/26/18 04/30/18 Allergies Allergy/AdvReac Type Severity Reaction Status Date / Time No Known Allergies Allergy Verified 03/26/18 18:47 Past Medical History - Past Medical History Medical history: Reports: GERD, hypertension, migraine, TIA Psychiatric history: Reports: no psych history - Social History Smoking Status: Current every day smoker Smokeless Tobacco Status: No Alcohol use: Reports: occasionally Drug use: Reports: marijuana Physical Exam - General Limitations: no limitations General appearance: alert, in no apparent distress Course Vital Signs Temperature 97.4 F L 04/30/18 13:05 Pulse Rate 66 04/30/18 13:05 Respiratory Rate 20 04/30/18 13:05 Blood Pressure 113/79 04/30/18 13:05 O2 Sat by Pulse Oximetry 99 04/30/18 13:05 Temperature 98.5 F 04/30/18 15:59 Pulse Rate 59 04/30/18 15:59 Respiratory Rate 15 04/30/18 15:59 Blood Pressure 120/82 04/30/18 15:59 O2 Sat by Pulse Oximetry 97 04/30/18 15:59 Oxygen Delivery Oxygen Delivery Room Air Medical Decision Making - [facility] Narrative Medical decision making narrative: 1316 hrs.: Reviewed his past chart looks like they wanted him to have inpatient treatment for physical and occupational therapy and patient refused. He also looks like he has been fairly noncompliant in the past. And that may be causing some of these issues today. We will see fingers social media manager talk with him and family. Head CT 04/30/18 13:08 IMPRESSION: 1. No acute intracranial abnormality. 2. Chronic small vessel ischemic disease. D/ / Luiz Tellez MD / Luiz Tellez MD Interpreting Provider: Luiz Tellez MD Chest X-Ray 04/30/18 13:09 IMPRESSION: Small bibasilar lung opacities likely represent atelectasis. D/ / 04/30/2018 14:24:44 Connor Johnson MD / Rita Abraham Interpreting Provider: Connor Johnson MD 1427 hrs.: paste up worker spoke with the family. They said that they might benefit from having speech therapy evaluation home and nursing nursing home. Were going to determine whether he needs come in the hospital or to go home and I think either way those are good recommendations. Waiting a patient's lab work. CT is back shows no acute abnormality 1435 hrs.: Spoke with family. They said that he is has physical therapy becomes at the house but he does not do any therapy on his own. This is a had persistent left-sided weakness. He was sitting on the couch they noticed his eyes rolled back in his head look like he was can have a seizure but did not end up the couch about 4 steps and fell to the ground he was very diaphoretic she says arms were clenched most like using have a seizure but did not and then came to. They could not get him off the floor so they called squad to bring him here. I get this point we should bring him in the hospital at the syncopal episode possible seizure with this past history of TIA. They are in agreement with plan. telephone services sales representative has seen him also. - Lab Data Result diagrams: 04/30/18 13:17 04/30/18 13:17 Lab Results 04/30/18 04/30/18 04/30/18 Range/Units 13:17 13:17 13:17 WBC 9.5 (4.3-11.1) K/mcL RBC 4.32 (4.19-5.50) M/mcL Hgb 12.7 L (12.9-16.9) g/dL Hct 37.7 (37.5-50.1) % MCV 87.3 (83.0-100.0) fL MCH 29.4 (28.0-33.3) pg MCHC 33.7 (31.6-35.5) g/dL RDW 13.3 (11.5-14.5) % Plt Count 326 (140-400) K/mcL MPV 9.3 L (9.4-12.4) fL Immature Gran % 0.3 (0-4) % Seg Neutrophils % 48.7 % Lymphocytes % 40.0 % Monocytes % 7.2 % Eosinophils % 3.1 % Basophils % 0.7 % Neutrophils # 4.6 (1.6-8.9) K/mcL Lymphocytes # 3.8 (0.6-4.6) K/mcL Monocytes # 0.7 (0.0-1.3) K/mcL Eosinophils # 0.3 (0.0-0.6) K/mcL Basophils # 0.1 (0.0-0.2) K/mcL Sodium 136 (136-145) mEq/L Potassium 3.7 (3.5-5.1) mEq/L Chloride 102 (98-107) mEq/L Carbon Dioxide 29 (23-29) mEq/L BUN 11 (6-20) mg/dL Creatinine 1.09 (0.70-1.30) mg/dL Est GFR ( Amer) > 60 (> 60) Est GFR (Non-Af Amer) > 60 (> 60) BUN/Creatinine Ratio 10 (6-26) Glucose 126 H (70-105) mg/dL Calculated Osmolality 283 (280-300) Calcium 9.5 (8.6-10.3) mg/dL Ethyl Alcohol < 10 (Less than 10) mg/dL Attestation Statement - Attestation Attestation: This documentation is done with the assistance of Dragon dictation. Despite efforts made to ensure accuracy, there may be inaccuracies in bolt labeler or spelling and typographical errors. I examined this patient and my medical decision-making was reviewed with the Resident Physician. I agree with the documented findings, disposition and treatment plan as described except to the extent set forth below. Patient seen and evaluated on arrival with EMS and Dr. Flaherty, I agree with his evaluation and management plan, supervise care the patient's stay. Patient presents today from home. He had a TIA about a week he has had some left-sided weakness. He does not recall what happened medics states the family said that he try to get in to the bathroom was weak and fell to ground he does not remember any of this denies any pain at this time. He has no acute symptoms. Clinical had and review his old chart do a CT of his head check labs EKG and reassess. He is in agreement with plan. He is up and and laboratory here. Without assistance.
[2018-04-30 13:32] LABS: Basophils # 0.1 K/mcL (0.0-0.2); Basophils % 0.7 %; Eosinophils # 0.3 K/mcL (0.0-0.6); Eosinophils % 3.1 %; Hematocrit 37.7 % (37.5-50.1); Hemoglobin 12.7 g/dL (12.9-16.9); Immature Granulocytes % 0.3 % (0-4); Lymphocytes # 3.8 K/mcL (0.6-4.6); Mean Corpuscular HGB Conc 33.7 g/dL (31.6-35.5); Mean Corpuscular Hemoglobin 29.4 pg (28.0-33.3); Mean Corpuscular Volume 87.3 fL (83.0-100.0); Mean Platelet Volume 9.3 fL (9.4-12.4); Monocytes # 0.7 K/mcL (0.0-1.3); Monocytes % 7.2 %; Neutrophils # 4.6 K/mcL (1.6-8.9); Platelet Count 326 K/mcL (140-400); Red Blood Count 4.32 M/mcL (4.19-5.50); Red Cell Distribution Width 13.3 % (11.5-14.5); Segmented Neutrophils % 48.7 %
[2018-04-30 13:50] LABS: BUN/Creatinine Ratio 10 (6-26); Blood Urea Nitrogen 11 mg/dL (6-20); Calcium 9.5 mg/dL (8.6-10.3); Carbon Dioxide 29 mEq/L (23-29); Chloride 102 mEq/L (98-107); Glucose 126 mg/dL (70-105); Osmolality,Calculated 283 (280-300); Potassium 3.7 mEq/L (3.5-5.1); Sodium 136 mEq/L (136-145); eGFR For Non-African Americans > 60 (> 60)
--- NOTE | 2018-04-30 14:45 | Emergency Department Note ---
Disposition Clinical Impression: Syncopal episodes Qualifiers: Syncope type: unspecified Qualified Code(s): R55 - Syncope and collapse Disposition: Admitted As Inpatient Condition: Good Referrals: NONE,PCP [Primary Care Provider] - Forms: ED Satisfaction Letter Time of Disposition: 14:56 General Adult HPI - General Chief complaint: ED Syncope Stated complaint: syncope Time Seen by Provider: 04/30/18 13:04 Source: patient, family, EMS Mode of arrival: EMS Limitations: no limitations Nursing Notes Reviewed: Yes Vital Signs Reviewed: Yes - History of Present Illness HPI Narrative: Patient a 53-year-old male that comes the emergency department for a syncopal episode. Patient is not sure of exactly what happened. Family states that he was getting up off the couch and seemed to pass out and fall to the ground lasting approximately 1 minute. States that during this time he was unresponsive to verbal stimuli and became very diaphoretic. Patient reports that he did have a TIA or stroke approximately one week ago and still has left- sided deficits. Patient denies any other pain at this time. Patient does state that he lost control of his bladder upon the syncopal episode. Family states that there was no convulsions or seizure-like activity. Pain Scale: 0 - Related Data Home Medications Medication Instructions Recorded Confirmed Albuterol Sulfate [Ventolin Hfa] 2 puff IH Q4H PRN 03/26/18 03/26/18 Lisinopril-HCTZ 20-12.5 [Prinzide 1 tab PO DAILY 03/26/18 03/26/18 20-12.5] Omeprazole [PriLOSEC] 40 mg PO DAILY 03/26/18 03/26/18 cloNIDine HCl [CloNIDine HCl] 0.1 mg PO TID 03/26/18 03/26/18 Allergies Allergy/AdvReac Type Severity Reaction Status Date / Time No Known Allergies Allergy Verified 03/26/18 18:47 All systems ED: reviewed and negative except as stated. Constitutional: Denies: fever Cardiovascular: Denies: chest pain Respiratory: Denies: dyspnea Gastrointestinal: Denies: abdominal pain Neurological: Reports: weakness (Weakness to the left side however this is chronic after the patient's CVA). Denies: numbness, paresthesias Past Medical History - Past Medical History Medical history: Reports: GERD, hypertension, migraine, TIA Psychiatric history: Reports: no psych history - Social History Smoking Status: Current every day smoker Smokeless Tobacco Status: No Alcohol use: Reports: occasionally Drug use: Reports: marijuana Physical Exam - General Limitations: no limitations General appearance: alert, in no apparent distress - Head Head exam: atraumatic, normocephalic - Eye Eye exam: Present: normal appearance, EOMI - Neck Neck exam: Present: normal inspection, full ROM, trachea midline - Respiratory Respiratory exam: Present: normal lung sounds bilaterally. Absent: respiratory distress, wheezes - Cardiovascular Cardiovascular exam: Present: regular rate, normal rhythm, normal heart sounds, +S1, +S2 - Abdominal Exam Abdominal exam: Present: soft, Non-Tender, normal bowel sounds - Neurological Exam Neurological exam: Present: alert, oriented X3, CN II-XII intact - Expanded Neurological Exam Cranial nerves: EOM function (II, III, IV, ): Normal, facial sensation (V): Normal, facial palsy (VII): Normal, gag reflex (IX): Normal, spinal accessory function (XI): Normal, tongue deviation (XII): Normal Cerebellar function: finger to nose: Normal, heel to wright: Normal Motor strength - LUE: 4/5 Motor strength - RUE: 5/5 Motor strength - LLE: 5/5 Motor strength - RLE: 5/5 Upper motor neuron exam: pronator drift: Present on left (mild drift ) Sensory exam upper extremity: light touch: Normal Sensory exam lower extremity: light touch: Normal Coma Scale Eye Opening: Spontaneous Coma Scale Motor Response: Obeys Commands Coma Scale Verbal Response: Oriented Coma Scale Total: 15 - Psychiatric Psychiatric exam: Present: normal affect, normal mood - Skin Skin exam: Present: warm, dry, intact Course Vital Signs Temperature 97.4 F L 04/30/18 13:05 Pulse Rate 66 04/30/18 13:05 Respiratory Rate 20 04/30/18 13:05 Blood Pressure 113/79 04/30/18 13:05 O2 Sat by Pulse Oximetry 99 04/30/18 13:05 Temperature 97.4 F L 04/30/18 13:05 Pulse Rate 66 04/30/18 13:05 Respiratory Rate 20 04/30/18 13:05 Blood Pressure 113/79 04/30/18 13:05 O2 Sat by Pulse Oximetry 99 04/30/18 13:05 Oxygen Delivery Oxygen Delivery Room Air Medical Decision Making - MDM Narrative Medical decision making narrative: Due to the patient's into the emergency Department with possible syncopal episode and fall we will obtain basic lab for testing and a CT scan of the head. The CT of the head did not show any acute process. The patient's laboratory testing was unremarkable. The due to the patient having a syncopal episode the patient will need to be admitted to the hospital for further evaluation and management. Patient was in agreement with this. I called and spoke the admitting hospitalist Dr. Manriquez and she has accepted the patient to their service. Patient be admitted to the hospital this time for further evaluation and management of these syncopal episode. Patient was in agreement with being admitted to the hospital. - Medical Records Medical records reviewed: Yes I reviewed the patient's medical records. - Lab Data Lab results reviewed: Yes I reviewed the patient's lab results. Result diagrams: 04/30/18 13:17 04/30/18 13:17 Lab Results 04/30/18 04/30/18 04/30/18 Range/Units 13:17 13:17 13:17 WBC 9.5 (4.3-11.1) K/mcL RBC 4.32 (4.19-5.50) M/mcL Hgb 12.7 L (12.9-16.9) g/dL Hct 37.7 (37.5-50.1) % MCV 87.3 (83.0-100.0) fL MCH 29.4 (28.0-33.3) pg MCHC 33.7 (31.6-35.5) g/dL RDW 13.3 (11.5-14.5) % Plt Count 326 (140-400) K/mcL MPV 9.3 L (9.4-12.4) fL Immature Gran % 0.3 (0-4) % Seg Neutrophils % 48.7 % Lymphocytes % 40.0 % Monocytes % 7.2 % Eosinophils % 3.1 % Basophils % 0.7 % Neutrophils # 4.6 (1.6-8.9) K/mcL Lymphocytes # 3.8 (0.6-4.6) K/mcL Monocytes # 0.7 (0.0-1.3) K/mcL Eosinophils # 0.3 (0.0-0.6) K/mcL Basophils # 0.1 (0.0-0.2) K/mcL Sodium 136 (136-145) mEq/L Potassium 3.7 (3.5-5.1) mEq/L Chloride 102 (98-107) mEq/L Carbon Dioxide 29 (23-29) mEq/L BUN 11 (6-20) mg/dL Creatinine 1.09 (0.70-1.30) mg/dL Est GFR ( Amer) > 60 (> 60) Est GFR (Non-Af Amer) > 60 (> 60) BUN/Creatinine Ratio 10 (6-26) Glucose 126 H (70-105) mg/dL Calculated Osmolality 283 (280-300) Calcium 9.5 (8.6-10.3) mg/dL Ethyl Alcohol < 10 (Less than 10) mg/dL - Radiology Data Radiology results reviewed: Yes I reviewed the patient's radiology results. Head CT 04/30/18 13:08 IMPRESSION: 1. No acute intracranial abnormality. 2. Chronic small vessel ischemic disease. D/ / Luiz Tellez MD / Luiz Tellez MD Interpreting Provider: Luiz Tellez MD Chest X-Ray 04/30/18 13:09 IMPRESSION: Small bibasilar lung opacities likely represent atelectasis. D/ / 04/30/2018 14:24:44 Connor Johnson MD / Rita Abraham Interpreting Provider: Connor Johnson MD - EKG Data EKG #1 EKG attestation: Yes I reviewed and interpreted this EKG. EKG results narrative: EKG showed a sinus rhythm rate 65 bpm, [place] interval of 128, QRS duration of 127, QTc 476 with a normal axis. No evidence of STEMI and EKG. This is compared to previous EKG on 03/26/18 which showed a sinus rhythm at 80 bpm
[2018-04-30] MEDS ORDERED: Naloxone 0.4 MG/ML INJ IVP PRN (17:11)
[2018-04-30] MEDS ORDERED: Acetaminophen 325 MG TABLET PO PRN (17:11)
[2018-04-30] MEDS ORDERED: Ringers Solution, Lactated 1,000 ML IVC SCH (17:15)
[2018-04-30] MEDS ORDERED: *HR* LORazepam 2 MG/ML VIAL IVP PRN (17:16)
--- NOTE | 2018-04-30 17:51 | Internal Med History&Physical ---
Date of Encounter: 04/30/18 Time of Encounter: 17:44 Internal Medicine - H&P: HPI Chief complaint: Syncope Admitted From: Emergency Dept Plans for Post Hospital Care: Home History of present illness: Mr. Martin is a 53 year old male with h/o- HTN and recent stroke, was brought in by family with c/o- syncope. He does not remember the episode and no family at bedside now. Per ER notes, he got up from his couch to use the restroom, when all of a sudden, he fell to the floor. He was noted to be diaphoretic with eyes rolled up, but no clear seizure-like activity. He denies chest pain, dizziness, dyspnea, palpitations or any other prodromal symptoms. No previous h/o- seizures. He reports urinary incontinence, but no tongue bite. HE HAS left-sided weakness from his recent stroke but no other focal deficits. Past Med Surg Social Fam HX - Past Medical History Source: patient Medical history: CVA, GERD, hypertension, migraine Additional medical history: chronic back pain Psychiatric history: no psych history - Past Surgical History Surgical History: herniorrhaphy Additional surgical history: cyst removed from face - Social History Smoking Status: Current every day smoker Packs per day: 1.5 Smokeless Tobacco Status: No Alcohol use: occasionally Drug use: marijuana Occupational status: disabled Current living situation: Home Activity Level: Independent ambulation Recent Out of Country Travel Within the Last 8 Weeks: No Exposure or Possible Exposure to Illness During Travel: No - Family History Mother Living Status: Father Living Status: Hx Family Respiratory Disorders: Yes (COPD) Internal Medicine - H&P: Meds Albuterol Sulfate [Ventolin Hfa] 2 puff IH Q4H PRN 03/26/18 [History] Lisinopril-HCTZ 20-12.5 [Prinzide 20-12.5] 1 tab PO DAILY 03/26/18 [History] Omeprazole [PriLOSEC] 40 mg PO DAILY 03/26/18 [History] cloNIDine HCl [CloNIDine HCl] 0.1 mg PO TID 03/26/18 [History] 3 Allergy/AdvReac Type Severity Reaction Status Date / Time No Known Allergies Allergy Verified 03/26/18 18:47 All Systems PM: A 10-system review of systems was performed and is negative for pertinent findings except as documented above in the HPI. - Constitutional Constitutional: no chills, no fever(s), no night sweats - EENT Eyes: no change in vision, no discharge, no pain, no photophobia Ears: no ear discharge, no ear pain, no tinnitus Nose, mouth and throat: no dysphagia, no nasal discharge, no neck pain, no sore throat - Cardiovascular Cardiovascular ROS IM: syncope, no chest pain, no diaphoresis, no dyspnea, no lightheadedness, no palpitations - Respiratory Respiratory: no cough, no dyspnea, no wheezing, no excessive phlegm production - Gastrointestinal Gastrointestinal: no abdominal pain, no diarrhea, no hematemesis, no hematochezia, no melena, no nausea, no vomiting - Musculoskeletal Musculoskeletal ROS IM: no numbness, no tingling - Integumentary Integumentary IM: no rash, no unusual bruising - Neurological Neurological ROS: as per HPI, confusion, focal weakness - Hematologic/Lymphatic Hematologic/Lymphatic: no easy bruising - Constitutional Vitals: Temp Pulse Resp BP Pulse Ox 98.5 F 59 15 120/82 97 04/30/18 15:59 04/30/18 15:59 04/30/18 15:59 04/30/18 15:59 04/30/18 15:59 General appearance: Present: A&O X 3 (slightly confused, drowsy, poor memory regarding his medical conditions) Exam: . - Respiratory Respiratory exam: Present: CTAB. Absent: accessory muscle use, rales, rhonchi, wheezes - Cardiovascular Cardiovascular exam: Present: RRR, +S1, +S2. Absent: diastolic murmur, gallop, rubs, systolic murmur - GI/Abdominal GI/Abdominal exam: Present: normal bowel sounds, soft, no peritoneal signs. Absent: distended, tenderness - Extremities Exam Extremities exam: Present: full ROM, warm, radial pulses palpable and symmetrical. Absent: calf tenderness, cyanotic, pedal edema - Neurological Exam Neurological exam: Present: CN II-XII intact, oriented X3, strengths equal and symetr throughout (left UE- 4/5 motor power, left LE- 3-4/5 motor power). Absent: pronater drift, facial droop, speech deficit - Skin Skin exam: Present: dry, intact Internal Med - H&P Results - Labs CBC & Chem 7: 09/06/18 13:17 04/30/18 13:17 - EKG Data -: EKG Interpreted by Myself EKG shows normal: sinus rhythm Rate: normal - Assessment and plan (1) Syncope Current Visit: Yes Status: Acute Assessment and plan: he reports he was started on a new antidepressant yesterday that is causing drowsiness and some confusion; may be drug-related syncope vs seizure vs arrhythmia; continue Telemetry monitoring, check Troponins; patient recently had a stroke workup completed with TTE, bilateral carotid Doppler which showed no acute abnormality; CT head today showed no acute bleed/infarct; will d/w Neurology and Cardiology, patient will probably need Holter monitor at discharge; PT evaluation recently recommended inpatient rehab, which he had and continues to decline. Qualifiers: Syncope type: unspecified Qualified Code(s): R55 - Syncope and collapse (2) Essential hypertension Current Visit: Yes Status: Chronic Assessment and plan: BP controlled; resume home meds; (3) CVA (cerebral vascular accident) Current Visit: Yes Status: Chronic Assessment and plan: continue ASA, Plavix and statin; Qualifiers: CVA mechanism: unspecified Qualified Code(s): I63.9 - Cerebral infarction, unspecified (4) Tobacco abuse Current Visit: Yes Status: Chronic Assessment and plan: Nicotine TD patch; he is not motivated to quit smoking at this time; - Time Spent With Patient Total time spent is greater than 50% in coordination of care (as documented) at patient's floor/unit and/or counseling patient:
[2018-04-30] MEDS: Nicotine 21 MG PATCH.TD24 TD SCH (18:48)
[2018-05-01 00:43] LABS: Basophils # 0.1 K/mcL (0.0-0.2); Basophils % 0.7 %; Eosinophils # 0.3 K/mcL (0.0-0.6); Eosinophils % 3.3 %; Hematocrit 35.9 % (37.5-50.1); Hemoglobin 12.3 g/dL (12.9-16.9); Immature Granulocytes % 0.2 % (0-4); Lymphocytes # 3.7 K/mcL (0.6-4.6); Lymphocytes % 43.8 %; Mean Corpuscular HGB Conc 34.3 g/dL (31.6-35.5); Mean Corpuscular Hemoglobin 29.8 pg (28.0-33.3); Mean Corpuscular Volume 86.9 fL (83.0-100.0); Mean Platelet Volume 9.7 fL (9.4-12.4); Monocytes # 0.6 K/mcL (0.0-1.3); Monocytes % 7.5 %; Neutrophils # 3.8 K/mcL (1.6-8.9); Platelet Count 281 K/mcL (140-400); Red Blood Count 4.13 M/mcL (4.19-5.50); Red Cell Distribution Width 13.5 % (11.5-14.5); Segmented Neutrophils % 44.5 %
[2018-05-01 01:01] LABS: BUN/Creatinine Ratio 12 (6-26); Blood Urea Nitrogen 11 mg/dL (6-20); Carbon Dioxide 27 mEq/L (23-29); Chloride 106 mEq/L (98-107); Chol/HDL Ratio 7.4 (0-4.9); Cholesterol 184 mg/dL (< 200); Glucose 111 mg/dL (70-105); HDL Cholesterol 25 mg/dL (40-59); LDL Cholesterol,Calculated 129 mg/dL (0-99); Osmolality,Calculated 286 (280-300); Potassium 3.8 mEq/L (3.5-5.1); Sodium 138 mEq/L (136-145); Triglycerides 149 mg/dL (< 150); eGFR For Non-African Americans > 60 (> 60)
[2018-05-01] MEDS: Nicotine 21 MG PATCH.TD24 TD SCH (08:33)
[2018-05-01] MEDS ORDERED: Aspirin Enteric Coated 81 MG Tablet PO SCH (09:00)
[2018-05-01] MEDS ORDERED: Lisinopril-HCTZ 20-12.5mg TABLET PO SCH (09:00)
--- NOTE | 2018-05-01 13:18 | Discharge Summary ---
- NOTES TO OUTPATIENT PROVIDER Notes to Outpatient Provider: Suspected syncope, likely due to new medication- Remeron; consider Holter monitoring as outpatient; recent stroke workup completed due to acute stroke; also has uncontrolled HTN, monitor closely; Date of Encounter: 05/01/18 Time of Encounter: 09:00 - Discharge Diagnosis (1) Syncope Priority: Primary Status: Acute Qualifiers: Syncope type: unspecified Qualified Code(s): R55 - Syncope and collapse (2) Essential hypertension Priority: Secondary Status: Chronic (3) CVA (cerebral vascular accident) Priority: Primary Status: Chronic Qualifiers: CVA mechanism: unspecified Qualified Code(s): I63.9 - Cerebral infarction, unspecified (4) Tobacco abuse Priority: Secondary Status: Chronic Hospital course: Mr. Martin is a 53 year old male with history of hypertension and tobacco abuse, who was brought in by family with reported complaint of syncope. Patient was recently discharged from our hospital after being treated for acute stroke with persistent left-sided weakness. I was unable to meet family during this admission. Patient does not remember the reported syncopal episode, apparently got up from his couch to walk to the bathroom when he just dropped down, with eyes rolled back and diaphoresis per ER notes. Initial labs, CT head, EKG showed no acute abnormality. Telemetry monitoring remained uneventful. Patient had no seizure-like activity, dizziness or syncope since admission. He was noted to be somewhat drowsy and confused at admission, he reported being started on new medication by his PCP the day prior to admission. Pharmacy was called and he was noted to have been started on Remeron, that he took in the day instead of at night. His syncopal episode could be secondary to this versus arrhythmia. He is advised not to continue this medication for now. Since patient completed recent stroke workup with bilateral carotid Doppler , transthoracic echocardiogram and MRI brain, no further testing is warranted at this time. Patient is noted to have uncontrolled hypertension, probably because he was not started on clonidine that he is noted to be on at home. He is noted to be impulsive, refuses to believe that his blood pressure is high and insisted on going home since admission. Patient is to follow-up with his primary care provider to consider outpatient Holter monitoring in the event of repeat syncopal episodes. Patient has home health services set up with [facility], he is otherwise medically stable for discharge. Of note, he is an actove smoker, unwilling to cut down at this time. Also would want to continue smoking MARIJUANA regularly. He does not seem to have prescriptions from recent discharge after stroke including ASA, Plavix and statin; these were provided to him. Discharge discussed with: patient, nurse, case management - Time Spent with Patient Total time spent providing and/or coordinating discharge services: Greater than 30 minutes (40 min) - Discharge Medications Prescriptions: Aspirin Enteric Coated [Aspirin EC] 81 mg PO DAILY #30 tablet. Atorvastatin [Lipitor] 40 mg PO HS #30 tablet Clopidogrel [Plavix] 75 mg PO DAILY #30 tablet Home Medications: Albuterol Sulfate [Ventolin Hfa] 2 puff IH Q4H PRN 03/26/18 [History] Lisinopril-HCTZ 20-12.5 [Prinzide 20-12.5] 1 tab PO DAILY 03/26/18 [History] Omeprazole [PriLOSEC] 40 mg PO DAILY 03/26/18 [History] cloNIDine HCl [CloNIDine HCl] 0.1 mg PO TID 03/26/18 [History] Aspirin Enteric Coated [Aspirin EC] 81 mg PO DAILY #30 tablet. 05/01/18 [Rx] Atorvastatin [Lipitor] 40 mg PO HS #30 tablet 05/01/18 [Rx] Clopidogrel [Plavix] 75 mg PO DAILY #30 tablet 05/01/18 [Rx] Allergies/Adverse Reactions: 3 Allergy/AdvReac Type Severity Reaction Status Date / Time No Known Allergies Allergy Verified 03/26/18 18:47 Date of admission: 04/30/18 15:07 Primary care physician: PCP NONE Consults: 04/30/18 16:06 Consult to Intranet Developer [CONS] Routine Reason for SW Consult: re-admit 05/01/18 08:51 Consult to Speech Therapy [CONS] Routine Comment: Evaluate, develop and implement POC Reason for Consult: family reports dysphagia, that cannot be objectively determined; recent stroke with left-sided weakness Call Completed: No Discharging clinician: Gissel Jones Anticipated date of discharge: 05/01/18 - Constitutional Vitals: Temp Pulse Resp BP Pulse Ox 97.7 F 73 18 162/126 100 05/01/18 12:32 05/01/18 12:32 05/01/18 12:32 05/01/18 12:32 05/01/18 12:32 General appearance: Present: A&O X 3, answers questions appropriately Exam: . - Cardiovascular Cardiovascular exam: Present: RRR, +S1, +S2. Absent: diastolic murmur, gallop, rubs, systolic murmur - Patient Status Disposition: Home Health Service Condition: Good Functional capacity at discharge: independent ambulation Overall status at discharge: patient is progressing back to baseline - Discharge Instructions Instructions: Clopidogrel (By mouth), How to Stop Smoking (DC) Follow Up With: Danny Sherman Jr, HAND WRAPPER OPERATOR [Advanced Practice Nurse] - 05/07/18 11:00 am - Diet and Activity Activity: as per physical therapy Diet: low fat, low cholesterol, low salt diet
[2018-05-01] MEDS ORDERED: cloNIDine HCl 0.1 MG TABLET PO ONE ×2 (13:23→13:26)
[2018-05-01 14:38] VITALS: BP 164/84
--- NOTE | 2018-05-02 12:03 | Electrocardiograph Report ---
[address] [address] Test Date: 2018-04-30 Pat Name: Walt Martin Department: [id number] Room: 3B14 Gender: M [employer]: : 1965 Requested By: Chino Harris Order Number: [id number] Reading MD: Carmen Dudley Measurements Intervals Mcdaniel Rate: 65 P: 59 AL: 128 QRS: 50 QRSD: 127 T: 28 QT: 457 QTc: 476 Interpretive Statements Sinus rhythm Nonspecific intraventricular conduction delay Electronically Signed On 05-02-2018 12:01:24 EDT by Carmen Dudley
== END 2018-05-01 14:45 | disposition home health service (06) ==
LOC: EMEROOARM 12:59 → 3BNU 12:59
PROVIDERS: ADMIT Internal Medicine; ATTEND Internal Medicine

== ENCOUNTER 2019-10-23 21:43 | Inpatient (IN) ==
[2019-10-23 22:42] LABS: Basophils # 0.1 K/mcL (0.0-0.2); Basophils % 0.6 %; Eosinophils # 0.1 K/mcL (0.0-0.6); Eosinophils % 1.5 %; Hematocrit 47.3 % (37.5-50.1); Immature Granulocytes % 0.2 % (0-4); Lymphocytes # 3.5 K/mcL (0.6-4.6); Lymphocytes % 40.9 %; Mean Corpuscular HGB Conc 33.8 g/dL (31.6-35.5); Mean Corpuscular Hemoglobin 30.8 pg (28.0-33.3); Mean Corpuscular Volume 91.1 fL (83.0-100.0); Mean Platelet Volume 9.2 fL (9.4-12.4); Monocytes # 0.5 K/mcL (0.0-1.3); Monocytes % 5.6 %; Neutrophils # 4.4 K/mcL (1.6-8.9); Platelet Count 305 K/mcL (140-400); Red Blood Count 5.19 M/mcL (4.19-5.50); Red Cell Distribution Width 13.6 % (11.5-14.5); Segmented Neutrophils % 51.2 %; White Blood Count 8.6 K/mcL (4.3-11.1)
[2019-10-23 22:46] LABS: INR 1.2; Prothrombin Time 13.2 Seconds (9.4-12.1)
[2019-10-23 22:49] LABS: Activated Partial Thrombo Time 35.7 Seconds (26.0-36.0)
[2019-10-23 23:07] LABS: BUN/Creatinine Ratio 13 (6-26); Blood Urea Nitrogen 13 mg/dL (6-20); Calcium 9.4 mg/dL (8.6-10.3); Carbon Dioxide 27 mEq/L (23-29); Chloride 101 mEq/L (98-107); Glucose 117 mg/dL (70-105); Osmolality,Calculated 285 (280-300); Potassium 3.1 mEq/L (3.5-5.1); Sodium 137 mEq/L (136-145); eGFR For African Americans > 60 (> 60); eGFR For Non-African Americans > 60 (> 60)
[2019-10-23 23:08] LABS: Troponin I < 0.03 ng/mL (< 0.04)
[2019-10-24] MEDS ORDERED: Potassium Chloride Elixir 20 MEQ/15 ML UDC PO ONE (00:07)
[2019-10-24] MEDS ORDERED: Nicotine 21 MG PATCH.TD24 TD ONE (00:15)
[2019-10-24] MEDS ORDERED: Acetaminophen 325 MG TABLET PO PRN (01:53)
[2019-10-24] MEDS ORDERED: Ondansetron 4 MG/2 ML VIAL IVP PRN (01:53)
[2019-10-24] MEDS ORDERED: Naloxone 0.4 MG/ML INJ IVP PRN (01:53)
[2019-10-24] MEDS ORDERED: Aspirin 325 MG TABLET PO ONE (02:10)
[2019-10-24] MEDS: 0.9 % Sodium Chloride 1,000 ML IVC SCH ×2 (05:28→16:18)
[2019-10-24 07:33] LABS: Basophils # 0.1 K/mcL (0.0-0.2); Eosinophils # 0.2 K/mcL (0.0-0.6); Eosinophils % 3.8 %; Hematocrit 43.2 % (37.5-50.1); Hemoglobin 14.6 g/dL (12.9-16.9); Immature Granulocytes % 0.2 % (0-4); Lymphocytes # 2.7 K/mcL (0.6-4.6); Lymphocytes % 43.8 %; Mean Corpuscular HGB Conc 33.8 g/dL (31.6-35.5); Mean Corpuscular Hemoglobin 31.1 pg (28.0-33.3); Mean Corpuscular Volume 92.1 fL (83.0-100.0); Mean Platelet Volume 9.4 fL (9.4-12.4); Monocytes # 0.5 K/mcL (0.0-1.3); Monocytes % 7.4 %; Neutrophils # 2.7 K/mcL (1.6-8.9); Platelet Count 298 K/mcL (140-400); Red Blood Count 4.69 M/mcL (4.19-5.50); Red Cell Distribution Width 13.6 % (11.5-14.5); Segmented Neutrophils % 43.8 %; White Blood Count 6.3 K/mcL (4.3-11.1)
[2019-10-24 07:36] LABS: Estimated Average Glucose 128 mg/dl
[2019-10-24 07:53] LABS: BUN/Creatinine Ratio 18 (6-26); Blood Urea Nitrogen 16 mg/dL (6-20); Carbon Dioxide 27 mEq/L (23-29); Chloride 106 mEq/L (98-107); Chol/HDL Ratio 4.8 (0-4.9); Cholesterol 152 mg/dL (< 200); Glucose 100 mg/dL (70-105); HDL Cholesterol 32 mg/dL (40-59); LDL Cholesterol,Calculated 94 mg/dL (0-99); Osmolality,Calculated 289 (280-300); Phosphorous 4.1 mg/dL (2.7-4.5); Potassium 3.8 mEq/L (3.5-5.1); Sodium 139 mEq/L (136-145); Triglycerides 131 mg/dL (< 150); eGFR For African Americans > 60 (> 60); eGFR For Non-African Americans > 60 (> 60)
[2019-10-24 08:16] LABS: Folate 4.5 ng/mL (3.0-16.0)
[2019-10-24 08:44] LABS: INR 1.1; Prothrombin Time 12.7 Seconds (9.4-12.1)
[2019-10-24] MEDS: cloNIDine HCL 0.1 MG TABLET PO SCH ×2 (16:17→21:13)
[2019-10-24] MEDS: Lisinopril-HCTZ 20-12.5mg TABLET PO SCH (21:13)
[2019-10-25] MEDS: Nicotine 21 MG PATCH.TD24 TD SCH ×2 (06:35→11:44)
[2019-10-25] MEDS: Aspirin 81 MG TAB.CHEW PO SCH (08:18)
[2019-10-25] MEDS: Lisinopril-HCTZ 20-12.5mg TABLET PO SCH ×2 (08:18→20:32)
[2019-10-25] MEDS: amLODIPine 5 MG TABLET PO SCH (08:18)
[2019-10-25] MEDS: cloNIDine HCL 0.1 MG TABLET PO SCH ×3 (08:18→20:32)
[2019-10-25] MEDS ORDERED: Isovue-370 500 ML BOTTLE IVP ONE (11:19)
[2019-10-26 08:30] LABS: Hematocrit 40.3 % (37.5-50.1); Hemoglobin 13.4 g/dL (12.9-16.9); Mean Corpuscular HGB Conc 33.3 g/dL (31.6-35.5); Mean Corpuscular Hemoglobin 30.6 pg (28.0-33.3); Mean Platelet Volume 9.5 fL (9.4-12.4); Platelet Count 250 K/mcL (140-400); Red Blood Count 4.38 M/mcL (4.19-5.50); Red Cell Distribution Width 13.3 % (11.5-14.5); White Blood Count 7.2 K/mcL (4.3-11.1)
[2019-10-26 08:47] LABS: BUN/Creatinine Ratio 15 (6-26); Blood Urea Nitrogen 13 mg/dL (6-20); Calcium 9.2 mg/dL (8.6-10.3); Carbon Dioxide 29 mEq/L (23-29); Chloride 103 mEq/L (98-107); Glucose 103 mg/dL (70-105); Osmolality,Calculated 284 (280-300); Potassium 3.8 mEq/L (3.5-5.1); Sodium 137 mEq/L (136-145); eGFR For African Americans > 60 (> 60); eGFR For Non-African Americans > 60 (> 60)
[2019-10-26] MEDS ORDERED: 0.9 % Sodium Chloride 500 ML IVC ONE (10:12)
[2019-10-26] MEDS ORDERED: Lidocaine Viscous Oral Soln 15 ML SOLUTION MM PRN (10:12)
[2019-10-26] MEDS: *HR* FentaNYL (PF) 100 MCG/2 ML VIAL IVP PRN ×2 (10:50→11:00)
[2019-10-26] MEDS: *HR* Midazolam HCl 5 MG/5 ML VIAL IVP PRN ×3 (10:50→11:00)
[2019-10-26 10:54] LABS: Amphetamine Screen,Urine Negative ng/mL (Cutoff=1000); Barbiturate Screen,Urine Negative ng/mL (Cutoff=200); Benzodiazepines Screen,Urine Negative ng/mL (Cutoff=200); Cannabinoid Screen,Urine Positive ng/mL (Cutoff = 50); Cocaine Screen,Urine Negative ng/mL (Cutoff= 300); Opiate Screen,Urine Negative ng/mL (Cutoff=300); Phencyclidine Screen,Urine Negative ng/mL (Cutoff=25)
[2019-10-26] MEDS: Nicotine 21 MG PATCH.TD24 TD SCH (12:45)
[2019-10-26] MEDS: Lisinopril-HCTZ 20-12.5mg TABLET PO SCH ×2 (12:46→20:36)
[2019-10-26] MEDS: amLODIPine 5 MG TABLET PO SCH (12:46)
[2019-10-26] MEDS: Aspirin 81 MG TAB.CHEW PO SCH (12:46)
[2019-10-26] MEDS: cloNIDine HCL 0.1 MG TABLET PO SCH ×3 (12:46→20:36)
[2019-10-26] MEDS: *HR* Heparin 5,000 UNIT/ML VIAL SQ SCH (20:36)
[2019-10-27] MEDS: Nicotine 21 MG PATCH.TD24 TD SCH (04:59)
[2019-10-27 05:22] LABS: Hematocrit 40.9 % (37.5-50.1); Hemoglobin 13.5 g/dL (12.9-16.9); Mean Platelet Volume 9.5 fL (9.4-12.4); Platelet Count 256 K/mcL (140-400); Red Blood Count 4.35 M/mcL (4.19-5.50); Red Cell Distribution Width 13.5 % (11.5-14.5); White Blood Count 7.6 K/mcL (4.3-11.1)
[2019-10-27] MEDS: *HR* Heparin 5,000 UNIT/ML VIAL SQ SCH (05:32)
[2019-10-27 05:44] LABS: BUN/Creatinine Ratio 15 (6-26); Blood Urea Nitrogen 14 mg/dL (6-20); Calcium 9.2 mg/dL (8.6-10.3); Carbon Dioxide 29 mEq/L (23-29); Chloride 101 mEq/L (98-107); Glucose 110 mg/dL (70-105); Osmolality,Calculated 285 (280-300); Potassium 3.5 mEq/L (3.5-5.1); Sodium 137 mEq/L (136-145); eGFR For African Americans > 60 (> 60); eGFR For Non-African Americans > 60 (> 60)
[2019-10-27] MEDS: Aspirin 81 MG TAB.CHEW PO SCH (07:52)
[2019-10-27] MEDS: cloNIDine HCL 0.1 MG TABLET PO SCH ×3 (07:52→20:35)
[2019-10-27] MEDS: Cyanocobalamin (B-12) 1,000 MCG TABLET PO SCH (07:52)
[2019-10-27] MEDS: Lisinopril-HCTZ 20-12.5mg TABLET PO SCH ×2 (07:52→20:35)
[2019-10-27] MEDS: amLODIPine 5 MG TABLET PO SCH (07:52)
[2019-10-27] MEDS ORDERED: *HR* Heparin 5,000 UNIT/ML VIAL IVP PRN ×2 (09:54)
[2019-10-27] MEDS ORDERED: Heparin 25,000 UNIT/250 ML D5W 25,000 UNIT/250 ML IV.SOLN IVC SCH (10:00)
[2019-10-27 10:17] LABS: Hematocrit 40.6 % (37.5-50.1); Hemoglobin 13.4 g/dL (12.9-16.9); Mean Corpuscular Hemoglobin 30.8 pg (28.0-33.3); Mean Corpuscular Volume 93.3 fL (83.0-100.0); Mean Platelet Volume 9.5 fL (9.4-12.4); Platelet Count 248 K/mcL (140-400); Red Blood Count 4.35 M/mcL (4.19-5.50); Red Cell Distribution Width 13.4 % (11.5-14.5); White Blood Count 6.6 K/mcL (4.3-11.1)
[2019-10-27 10:25] LABS: Heparin anti-factor XA UFH 0.04 IU/mL (0.30-0.70); INR 1.1; Prothrombin Time 12.3 Seconds (9.4-12.1)
[2019-10-27 10:26] LABS: INR 1.1
[2019-10-27] MEDS ORDERED: Warfarin perPT PO PRN (18:00)
[2019-10-27] MEDS ORDERED: *HR* Warfarin 5 MG TABLET PO ONE (18:00)
[2019-10-28 01:57] LABS: INR 1.1; Prothrombin Time 12.2 Seconds (9.4-12.1)
[2019-10-28] MEDS: Nicotine 21 MG PATCH.TD24 TD SCH (05:45)
[2019-10-28] MEDS: Cyanocobalamin (B-12) 1,000 MCG TABLET PO SCH (08:12)
[2019-10-28] MEDS: Lisinopril-HCTZ 20-12.5mg TABLET PO SCH ×2 (08:12→20:00)
[2019-10-28] MEDS: amLODIPine 5 MG TABLET PO SCH (08:12)
[2019-10-28] MEDS: cloNIDine HCL 0.1 MG TABLET PO SCH ×3 (08:12→20:00)
[2019-10-28] MEDS: Aspirin 81 MG TAB.CHEW PO SCH (08:12)
[2019-10-29 05:18] LABS: INR 1.1; Prothrombin Time 12.2 Seconds (9.4-12.1)
[2019-10-29 05:21] LABS: Hematocrit 41.3 % (37.5-50.1); Hemoglobin 13.4 g/dL (12.9-16.9); Mean Corpuscular HGB Conc 32.4 g/dL (31.6-35.5); Mean Corpuscular Hemoglobin 30.9 pg (28.0-33.3); Mean Corpuscular Volume 95.2 fL (83.0-100.0); Mean Platelet Volume 9.7 fL (9.4-12.4); Platelet Count 253 K/mcL (140-400); Red Blood Count 4.34 M/mcL (4.19-5.50); Red Cell Distribution Width 13.4 % (11.5-14.5); White Blood Count 7.2 K/mcL (4.3-11.1)
[2019-10-29] MEDS: Nicotine 21 MG PATCH.TD24 TD SCH (05:23)
[2019-10-29 05:41] LABS: BUN/Creatinine Ratio 17 (6-26); Blood Urea Nitrogen 19 mg/dL (6-20); Carbon Dioxide 29 mEq/L (23-29); Chloride 100 mEq/L (98-107); Glucose 110 mg/dL (70-105); Osmolality,Calculated 285 (280-300); Potassium 3.9 mEq/L (3.5-5.1); Sodium 136 mEq/L (136-145); eGFR For African Americans > 60 (> 60); eGFR For Non-African Americans > 60 (> 60)
[2019-10-29] MEDS: Lisinopril-HCTZ 20-12.5mg TABLET PO SCH (08:41)
[2019-10-29] MEDS: Aspirin 81 MG TAB.CHEW PO SCH (08:41)
[2019-10-29] MEDS: Cyanocobalamin (B-12) 1,000 MCG TABLET PO SCH (08:42)
[2019-10-29] MEDS: cloNIDine HCL 0.1 MG TABLET PO SCH (08:42)
[2019-10-29] MEDS: amLODIPine 5 MG TABLET PO SCH (08:42)
[2019-10-29 11:11] VITALS: BP 119/79
[2019-10-30 20:07] LABS: FACV Specimen WHOLE BLOOD
[2019-10-31 07:40] LABS: Fac V Leiden R506Q Mut Result NEGATIVE
== END 2019-10-29 13:51 | disposition short-term general hospital (02) | DRG 45 ==
LOC: EMEROOARM 21:43 → 3BNU 21:43
PROVIDERS: ADMIT Internal Medicine; ATTEND Internal Medicine

== ENCOUNTER 2021-02-11 16:52 | Observation (INO) ==
[2021-02-11] MEDS ORDERED: Aspirin 81 MG TAB.CHEW PO ONE (18:04)
[2021-02-11] MEDS ORDERED: 0.9 % Sodium Chloride 1,000 ML IVC ONE (18:10)
[2021-02-11 18:22] LABS: Basophils # 0.1 K/mcL (0.0-0.2); Basophils % 0.7 %; Eosinophils # 0.2 K/mcL (0.0-0.6); Eosinophils % 1.7 %; Hematocrit 41.8 % (37.5-50.1); Hemoglobin 13.7 g/dL (12.9-16.9); Immature Granulocytes % 0.4 % (0-4); Lymphocytes % 26.7 %; Mean Corpuscular HGB Conc 32.8 g/dL (31.6-35.5); Mean Corpuscular Hemoglobin 29.4 pg (28.0-33.3); Mean Corpuscular Volume 89.7 fL (83.0-100.0); Mean Platelet Volume 9.6 fL (9.4-12.4); Monocytes % 8.3 %; Neutrophils # 7.1 K/mcL (1.6-8.9); Platelet Count 350 K/mcL (140-400); Red Blood Count 4.66 M/mcL (4.19-5.50); Segmented Neutrophils % 62.2 %; White Blood Count 11.4 K/mcL (4.3-11.1)
[2021-02-11 18:47] LABS: Alanine Aminotransferase 16 Units/L (7-52); Albumin 4.3 g/dL (3.5-5.7); Albumin/Globulin Ratio 1.3 (1.1-2.2); Alkaline Phosphatase 66 Units/L (34-104); Aspartate Amino Transferase 15 Units/L (13-39); BUN/Creatinine Ratio 11 (6-26); Bilirubin,Direct 0.2 mg/dL (0.0-0.2); Bilirubin,Indirect 0.6 mg/dL (0.0-1.0); Bilirubin,Total 0.8 mg/dL (0.3-1.0); Blood Urea Nitrogen 16 mg/dL (6-20); Calcium 9.7 mg/dL (8.6-10.3); Carbon Dioxide 24 mEq/L (23-29); Chloride 102 mEq/L (98-107); Globulin 3.2 g/dL (2.4-3.5); Glucose 182 mg/dL (70-105); Lipase 27 Units/L (11-82); Osmolality,Calculated 288 (280-300); Potassium 3.4 mEq/L (3.5-5.1); Sodium 136 mEq/L (136-145); Total Protein 7.5 g/dL (6.4-8.9); Troponin I < 0.03 ng/mL (< 0.04); eGFR For African Americans 59 (> 60); eGFR For Non-African Americans 49 (> 60)
[2021-02-11] MEDS ORDERED: Potassium Chloride Elixir 20 MEQ/15 ML UDC PO ONE (19:55)
[2021-02-11] MEDS ORDERED: Perflutren Lipid Microsphere 1.3 ML in 0.9 % Sodium Chloride 8.7 ML IVP PRN (20:48)
[2021-02-11] MEDS ORDERED: Naloxone 0.4 MG/ML INJ IVP PRN (20:49)
[2021-02-11] MEDS ORDERED: Acetaminophen 325 MG TABLET PO PRN (20:49)
[2021-02-11] MEDS ORDERED: Ondansetron 4 MG/2 ML VIAL IVP PRN (20:49)
[2021-02-11] MEDS ORDERED: Dextrose Gel 15 GM/37.5 ML TUBE PO PRN ×2 (20:52)
[2021-02-11] MEDS ORDERED: *HR* Dextrose 50 % in Water (Vial) 50 ML VIAL IVP PRN (20:52)
[2021-02-11] MEDS ORDERED: D5% in Water 1,000 ML IVC PRN (20:52)
[2021-02-11] MEDS ORDERED: Nitroglycerin 0.4 MG TAB.SUBL SL PRN (21:01)
[2021-02-11 21:06] LABS: Amphetamine Screen,Urine Negative ng/mL (Cutoff=1000); Barbiturate Screen,Urine Negative ng/mL (Cutoff=200); Benzodiazepines Screen,Urine Negative ng/mL (Cutoff=200); Cannabinoid Screen,Urine Positive ng/mL (Cutoff = 50); Cocaine Screen,Urine Negative ng/mL (Cutoff= 300); Opiate Screen,Urine Negative ng/mL (Cutoff=300); Phencyclidine Screen,Urine Negative ng/mL (Cutoff=25)
[2021-02-11] MEDS: *HR* Heparin 5,000 UNIT/ML VIAL SQ SCH (21:19)
[2021-02-11] MEDS: Nicotine 21 MG PATCH.TD24 TD SCH (21:20)
[2021-02-11] MEDS: Insulin LISPRO 300 UNITS/3 ML VIAL SUBQ SCH (21:20)
[2021-02-11 21:49] LABS: Bilirubin,Urine Negative (Negative); Blood,Urine Moderate (Negative); Clarity,Urine Clear (Clear); Color,Urine Yellow (Yellow); Glucose,Urine (UA) 200 mg/dL (Normal); Hyaline Casts,Urine Moderate per lpf (None Seen); Ketones,Urine Trace mg/dL (Negative); Leukocyte Esterase,Urine Negative (Negative); Mucus,Urine Few per lpf (None-Few); Nitrite,Urine Negative (Negative); PH,Urine 5.5 pH Units (5.0-8.0); Protein,Urine 50 mg/dL (Neg-Trace); Specific Gravity,Urine 1.024 (1.010-1.025); Urobilinogen,Urine Normal (Normal)
[2021-02-12 00:41] LABS: Hemoglobin 12.6 g/dL (12.9-16.9); Mean Corpuscular HGB Conc 33.2 g/dL (31.6-35.5); Mean Corpuscular Hemoglobin 29.9 pg (28.0-33.3); Mean Corpuscular Volume 90.3 fL (83.0-100.0); Platelet Count 271 K/mcL (140-400); Red Blood Count 4.21 M/mcL (4.19-5.50); Red Cell Distribution Width 14.1 % (11.5-14.5); White Blood Count 8.3 K/mcL (4.3-11.1)
[2021-02-12 00:49] LABS: INR 1.5
[2021-02-12 00:52] LABS: Activated Partial Thrombo Time 34.9 Seconds (26.0-36.0)
[2021-02-12 01:02] LABS: BUN/Creatinine Ratio 14 (6-26); Blood Urea Nitrogen 18 mg/dL (6-20); Calcium 8.9 mg/dL (8.6-10.3); Carbon Dioxide 27 mEq/L (23-29); Chloride 102 mEq/L (98-107); Chol/HDL Ratio 6.5 (0-4.9); Cholesterol 156 mg/dL (< 200); Glucose 137 mg/dL (70-105); HDL Cholesterol 24 mg/dL (40-59); LDL Cholesterol,Calculated 103 mg/dL (< 100); Osmolality,Calculated 288 (280-300); Potassium 3.4 mEq/L (3.5-5.1); Sodium 137 mEq/L (136-145); Triglycerides 143 mg/dL (< 150); eGFR For African Americans > 60 (> 60); eGFR For Non-African Americans 59 (> 60)
[2021-02-12 01:17] LABS: Thyroid Stimulating Hormone 1.048 mcIU/mL (0.340-5.600)
[2021-02-12 01:56] LABS: Estimated Average Glucose 235 mg/dl; Hemoglobin A1C 9.8 %
[2021-02-12] MEDS ORDERED: Potassium Chloride 20 MEQ, Lidocaine 1% 2 ML in 0.9 % Sodium Chloride 250 ML IVPB ONE (03:49)
[2021-02-12] MEDS: *HR* Heparin 5,000 UNIT/ML VIAL SQ SCH ×3 (05:13→22:20)
[2021-02-12] MEDS ORDERED: Regadenoson 0.4 MG/5 ML SYRINGE IVP ONE (06:37)
[2021-02-12] MEDS: Insulin LISPRO 300 UNITS/3 ML VIAL SUBQ SCH ×4 (07:10→22:20)
[2021-02-12] MEDS: Aspirin Enteric Coated 81 MG Tablet PO SCH (10:47)
[2021-02-12] MEDS: amLODIPine 5 MG TABLET PO SCH (10:48)
[2021-02-12] MEDS: Nicotine 21 MG PATCH.TD24 TD SCH (10:48)
[2021-02-12] MEDS: carvediloL 6.25 MG TABLET PO SCH (17:04)
[2021-02-12] MEDS: Gabapentin 300 MG CAPSULE PO SCH (21:21)
[2021-02-13] MEDS: *HR* Heparin 5,000 UNIT/ML VIAL SQ SCH ×2 (05:23→13:23)
[2021-02-13 07:46] LABS: Hematocrit 38.7 % (37.5-50.1); Hemoglobin 12.9 g/dL (12.9-16.9); Mean Corpuscular HGB Conc 33.3 g/dL (31.6-35.5); Mean Corpuscular Hemoglobin 29.8 pg (28.0-33.3); Mean Corpuscular Volume 89.4 fL (83.0-100.0); Mean Platelet Volume 9.5 fL (9.4-12.4); Platelet Count 313 K/mcL (140-400); Red Blood Count 4.33 M/mcL (4.19-5.50); Red Cell Distribution Width 13.7 % (11.5-14.5); White Blood Count 7.6 K/mcL (4.3-11.1)
[2021-02-13 08:02] LABS: BUN/Creatinine Ratio 14 (6-26); Blood Urea Nitrogen 14 mg/dL (6-20); Carbon Dioxide 25 mEq/L (23-29); Chloride 103 mEq/L (98-107); Glucose 173 mg/dL (70-105); Osmolality,Calculated 287 (280-300); Potassium 3.7 mEq/L (3.5-5.1); Sodium 136 mEq/L (136-145); eGFR For African Americans > 60 (> 60); eGFR For Non-African Americans > 60 (> 60)
[2021-02-13] MEDS ORDERED: Regadenoson 0.4 MG/5 ML SYRINGE IVP ONE (08:46)
[2021-02-13] MEDS ORDERED: Loratadine 10 MG TABLET PO SCH (09:00)
[2021-02-13] MEDS: Insulin LISPRO 300 UNITS/3 ML VIAL SUBQ SCH ×2 (09:23→11:22)
[2021-02-13 11:18] VITALS: BP 143/100
[2021-02-13] MEDS: carvediloL 6.25 MG TABLET PO SCH (11:30)
[2021-02-13] MEDS: Aspirin Enteric Coated 81 MG Tablet PO SCH (11:30)
[2021-02-13] MEDS: Gabapentin 300 MG CAPSULE PO SCH ×2 (11:30→13:35)
[2021-02-13] MEDS: amLODIPine 5 MG TABLET PO SCH (11:30)
[2021-02-13] MEDS: Nicotine 21 MG PATCH.TD24 TD SCH (11:31)
[2021-02-13] MEDS ORDERED: Isosorbide MONOnitrate (24 HR) 30 MG TAB.ER.24H PO SCH (13:00)
== END 2021-02-13 16:14 | disposition left against medical advice (07) ==
LOC: EMEROOARM 16:52 → 3BNU 16:52 → SUATTDRO 20:00 → 3BNU 20:32
PROVIDERS: ADMIT Internal Medicine; ATTEND Nurse Practitioner